=== PATIENT | male | born 1985 | race Caucasian/White ===

== ENCOUNTER → 2019-03-17 | Outpatient (CLI) | payer MEDICAID ==
[~2019-03-17] MED LIST: BENZ1TAB2 PO; DOCU100T15 PO; LAMO25TA2 PO; MULTTAB61 PO; ONDA4TAB5 PO; OXCA600T3 PO; PALI3TAB3 PO; QUET25TA37 PO; TRAZ100T2 PO
[2019-03-17 08:31] LABS: Eosinophils # (auto) 0.2 uL; Eosinophils % (auto) 3.5 % (0.0-7.0); Hemoglobin 9.5 g/dL (13.5-17.5); Lymphocytes # (auto) 1.3 uL; Neutrophils # (auto) 2.4 uL; Nucleated Red Blood Cells % 0.1 %
[2019-03-17 08:34] LABS: Basophils # (auto) 0.1 uL; Basophils % (auto) 1.2 % (0.0-2.0); Hematocrit 31.2 % (41.0-53.0); Lymphocytes % (auto) 28.6 % (10.0-50.0); Mean Corpuscular Hgb Conc. 30.4 g/dL (32.0-36.0); Monocytes # (auto) 0.5 uL; Neutrophils % (auto) 54.7 % (37.0-80.0); Platelet Count (auto) 388 10^3/uL (140-450); Red Blood Cells 4.73 10^6/uL (4.5-5.90); White Blood Cell 4.5 10^3/uL (4.4-10.8)
[2019-03-17 11:04] LABS: Red Cell Distribution Width 26.4 % (11.8-14.3)
[2019-03-17 12:10] LABS: Cholesterol 214 mg/dL (< 200); HDL Cholesterol 65 mg/dL (40-59); LDL Cholesterol 140 mg/dL (< 100); Triglycerides 88 mg/dL (< 150)
== END | disposition home or self-care (01) ==
LOC: LAB 08:08
PROVIDERS: ATTEND Internal Medicine
DX: K20.9 Esophagitis, unspecified (principal); R56.9 Unspecified convulsions; Q85.00 Neurofibromatosis, unspecified
CPT/HCPCS: 36415; 80061; 83036; 85025

== ENCOUNTER 2019-04-30 10:17 | Emergency (ER) | payer MEDICAID ==
[~2019-04-30] VITALS: Ht 175.3 cm; Wt 72.6 kg
[~2019-04-30 10:17] MED LIST changes: +ONDA-144 PO; -ONDA4TAB5 PO
[2019-04-30] MEDS ORDERED: LORazepam 2MG/ML-1ML VIAL ONE (11:00)
[2019-04-30] MEDS ORDERED: LORazepam 2MG/ML-1ML VIAL IV ONE ×2 (11:00→11:30)
[2019-04-30] MEDS ORDERED: SODIUM CHLORIDE 0.9% 1,000 ML IV ONE (11:20)
[2019-04-30 11:53] LABS: Basophils # (auto) 0 uL; Eosinophils # (auto) 0 uL; Eosinophils % (auto) 0.4 % (0.0-7.0); Hematocrit 28.2 % (41.0-53.0); White Blood Cell 6.7 10^3/uL (4.4-10.8)
[2019-04-30 11:55] LABS: Basophils % (auto) 0.5 % (0.0-2.0); Lymphocytes # (auto) 0.5 uL; Lymphocytes % (auto) 7.4 % (10.0-50.0); Mean Corpuscular Hemoglobin 20.9 pg (28.0-32.0); Mean Corpuscular Hgb Conc. 31.8 g/dL (32.0-36.0); Mean Corpuscular Volume 65.6 fL (80.0-100.0); Monocytes # (auto) 0.7 uL; Monocytes % (auto) 10.1 % (0.0-12.0); Neutrophils # (auto) 5.5 uL; Neutrophils % (auto) 81.6 % (37.0-80.0); Platelet Count (auto) 286 10^3/uL (140-450)
[2019-04-30 11:56] LABS: Red Cell Distribution Width 20.8 % (11.8-14.3)
[2019-04-30] MEDS ORDERED: ACETAMINOPHEN 500 MG TAB PO ONE (12:00)
[2019-04-30 12:10] LABS: Albumin 3.5 g/dL (3.4-5.0); Calcium 7.9 mg/dL (8.5-10.1); Magnesium 2.2 mg/dL (1.6-2.6); Potassium 4.5 mmol/L (3.5-5.1)
[2019-04-30 12:13] LABS: BUN/Creatinine Ratio 8.6; Bilirubin, Total 0.2 mg/dL (0.2-1.0); Total Protein 7.1 g/dL (6.4-8.2)
[2019-04-30 13:11] LABS: Urine Bacteria NONE SEEN /hpf (None Seen); Urine Blood Negative /uL (Negative); Urine Specific Gravity 1.008 (1.001-1.035); Urine Sperm PRESENT /hpf (None Seen); Urine WBC 9 /hpf (0 - 3)
[2019-04-30] MEDS ORDERED: IOHEXOL 300 MG/ML 100ML BOTTLE IJ ONE (13:59)
[2019-04-30 14:00] VITALS: BP 125/73
== END 2019-04-30 15:53 | disposition home or self-care (01) ==
LOC: EDBD 10:17 → ER 10:20
DX: G40.909 Epilepsy, unspecified, not intractable, without status epilepticus (principal); J18.9 Pneumonia, unspecified organism; F20.9 Schizophrenia, unspecified
CPT/HCPCS: 36415; 70450; 71045; 71260; 80053; 81001; 83735; 85025; 93005; 94761; 96374; 99284; J2060; J7030; Q9967

== ENCOUNTER 2021-11-19 13:31 | Emergency (ER) | payer MEDICAID ==
[~2021-11-19] VITALS: Ht 175.3 cm; Wt 77.1 kg
[~2021-11-19 13:31] MED LIST changes: +MULT-1018 PO; -MULTTAB61 PO; +PALI3TAB PO; -PALI3TAB3 PO; -TRAZ100T2 PO; +TRAZ100T3 PO
[2021-11-19] MEDS ORDERED: LORazepam 2MG/ML-1ML VIAL IV ONE (13:45)
[2021-11-19 15:13] LABS: Potassium 4.2 mmol/L (3.5-5.1)
[2021-11-19 15:19] LABS: Albumin 4.2 g/dL (3.4-5.0); BUN/Creatinine Ratio 18.6; Basophils # (auto) 0.1 10 ^3/uL (0-0.2); Basophils % (auto) 0.9 % (0.0-2.0); Bilirubin, Total 0.4 mg/dL (0.2-1.0); Calcium 9.2 mg/dL (8.5-10.1); Eosinophils # (auto) 0 10 ^3/uL (0-0.8); Eosinophils % (auto) 0.3 % (0.0-7.0); Hematocrit 44.6 % (41.0-53.0); Hemoglobin 15.1 g/dL (13.5-17.5); Lymphocytes # (auto) 0.8 10 ^3/uL (0.4-5.4); Lymphocytes % (auto) 8.7 % (10.0-50.0); Mean Corpuscular Hemoglobin 28.7 pg (28.0-32.0); Mean Corpuscular Hgb Conc. 33.9 g/dL (32.0-36.0); Mean Corpuscular Volume 84.7 fL (80.0-100.0); Monocytes # (auto) 0.6 10 ^3/uL (0-1.3); Monocytes % (auto) 6.6 % (0.0-12.0); Neutrophils # (auto) 7.5 10 ^3/uL (1.6-8.6); Neutrophils % (auto) 83.5 % (37.0-80.0); Red Blood Cells 5.27 10^6/uL (4.5-5.90); Red Cell Distribution Width 14.9 % (11.8-14.3); Total Protein 8.1 g/dL (6.4-8.2)
[2021-11-19] MEDS ORDERED: ACETAMINOPHEN 325 MG TAB PO ONE (15:30)
[2021-11-19] MEDS ORDERED: ceFAZolin 1GM/50ML 50 ML IV ONE (16:00)
[2021-11-19] MEDS ORDERED: PHENYTOIN IV DILANTIN 1,000 MG in SODIUM CHL 0.9% 250 ML IV ONE (16:00)
[2021-11-19 17:50] VITALS: BP 141/90
== END 2021-11-19 18:12 | disposition short-term general hospital (02) ==
LOC: EDBD 13:31 → ER 13:37
DX: S02.85XA Fracture of orbit, unspecified, initial encounter for closed fracture (principal); S02.19XA Other fracture of base of skull, initial encounter for closed fracture; R56.9 Unspecified convulsions; G93.89 Other specified disorders of brain; Z90.49 Acquired absence of other specified parts of digestive tract; X58.XXXA Exposure to other specified factors, initial encounter; Y93.89 Activity, other specified; Y92.89 Other specified places as the place of occurrence of the external cause; Y99.8 Other external cause status
CPT/HCPCS: 36415; 70450; 70486; 80053; 85025; 96365; 96368; 99285; J0690; J1165; J7050

== ENCOUNTER 2024-07-22 17:59 | Emergency (ER) | payer MEDICAID ==
[~2024-07-22] VITALS: Ht 177.8 cm; Wt 81.8 kg
[~2024-07-22 17:59] MED LIST changes: -BENZ1TAB2 PO; +BENZ1TAB6 PO; +TRAZ-228 PO; -TRAZ100T3 PO
[2024-07-22 18:17] VITALS: PULSE 111; RESP 27; TEMP 98.3; O2SAT 92
[2024-07-22] MEDS: levETIRAcetam 1000 mg/100ml 100 ML IV ONE (18:28)
[2024-07-22 18:41] LABS: Basophils # (auto) 0 10 ^3/uL (0-0.2); Basophils % (auto) 0.2 % (0.0-2.0); Eosinophils # (auto) 0 10 ^3/uL (0-0.8); Eosinophils % (auto) 0.4 % (0.0-7.0); Hematocrit 39.9 % (41.0-53.0); Hemoglobin 13.6 g/dL (13.5-17.5); Lymphocytes % (auto) 9.7 % (10.0-50.0); Mean Corpuscular Hemoglobin 31.8 pg (28.0-32.0); Mean Corpuscular Volume 93.4 fL (80.0-100.0); Monocytes # (auto) 0.4 10 ^3/uL (0-1.3); Monocytes % (auto) 4.2 % (0.0-12.0); Neutrophils # (auto) 8.9 10 ^3/uL (1.6-8.6); Neutrophils % (auto) 85.5 % (37.0-80.0); Platelet Count (auto) 246 10^3/uL (140-450); Red Blood Cells 4.28 10^6/uL (4.5-5.90); Red Cell Distribution Width 13.8 % (11.8-14.3); White Blood Cell 10.4 10^3/uL (4.4-10.8)
[2024-07-22 18:49] LABS: Chloride 102 mmol/L (98-107); Potassium 3.8 mmol/L (3.5-5.1); Sodium 135 mmol/L (136-145)
[2024-07-22 18:50] LABS: Anion Gap 14 (5-15); Carbon Dioxide 19 mmol/L (20-31)
[2024-07-22 18:51] LABS: Calcium 9.1 mg/dL (8.7-10.4)
[2024-07-22 18:55] LABS: BUN/Creatinine Ratio 9.6 (10.0-20.0); Blood Urea Nitrogen 10 mg/dL (9-23); Glucose 125 mg/dL (74-106)
[2024-07-22 19:27] LABS: Lactic Acid w/Reflex 8.9 mmol/L (0.4-2.0)
[2024-07-22] MEDS: SODIUM CHLORIDE 0.9% 1,000 ML IV ONE (19:32)
[2024-07-22] MEDS: ACETAMINOPHEN 325 MG TAB PO ONE (19:50)
[2024-07-22 21:59] LABS: Urine Bacteria MOD /hpf (None Seen); Urine Blood Negative /uL (Negative); Urine Clarity Clear (Clear); Urine Color Light-Yellow (Yellow); Urine Hyaline Cast FEW /lpf (0 - 2); Urine Protein, UAD TRACE (Negative); Urine Specific Gravity 1.012 (1.001-1.035); Urine Sperm PRESENT /hpf (None Seen); Urine Urobilinogen Normal (Negative); Urine WBC 25 /hpf (0 - 3)
[2024-07-22 22:00] VITALS: BP 103/62; PULSE 86; RESP 18; O2SAT 92
== END 2024-07-22 22:33 | disposition home or self-care (01) ==
LOC: ER 17:59 → EDBD 17:59 → ER 22:33
DX: G40.909 Epilepsy, unspecified, not intractable, without status epilepticus (principal); F20.9 Schizophrenia, unspecified; R41.82 Altered mental status, unspecified; Z90.49 Acquired absence of other specified parts of digestive tract
CPT/HCPCS: 36415; 70450; 71045; 80048; 81001; 83605; 84484; 85025; 93005; 96361; 96365; 99291; J1953; J7030

== ENCOUNTER 2024-11-29 12:45 | Inpatient (IN) | payer MEDICAID ==
[~2024-11-29] VITALS: Ht 208.3 cm; Wt 54.2 kg
--- NOTE | 2024-11-29 12:59 | ED.PDOC ---
HPI (NEURO) HPI Comments 39 year old male STEPHANIE presents to the ED with chief complaint of seizure. EMS reports that the patient had been witnessed by family to be having a seizure that lasted around 5 minutes, however, patient has continued to be altered since the seizure. EMS relays patient's family stated that he has ran out of one of his seizure medication called Xcopri, waiting for the prescription to be filled. Patient unable to answer any questions at this time, however, EMS denies any incontinence, head injury, or mouth trauma. Chief Complaint: Seizure Time Seen by MD: 12:55 Primary Care Provider: UNKNOWN NAME Reviewed Notes: Nurses Notes, Medications, Allergies Information Source: Patient Mode of Arrival: Ambulatory Severity: Moderate Timing: Hours Duration: Since onset Prehospital treatment: None Seizure Quality: Tonic-clonic, Shaking, Single Episodes Seizure Location: Generalized Onset: At rest Circumstances: Spontaneous Symptoms: Syncope Before: Normal During: LOC After: Confusion History of: Seizure Disorder Past Medical History PAST MEDICAL HISTORY: Schizophrenia, Seizures Surgical History: Appendectomy Surgical History (Other): VNS stimulator Family History Family History: Reviewed,noncontributory to illness Social History Smoker: Non-Smoker Alcohol: Denies ETOH Use Drugs: Denies Drug Use Lives In: Home Constitutional: denies: chills, diaphoresis, fatigue, fever, malaise, sweats, weakness, others EENTM: denies: blurred vision, double vision, ear bleeding, ear discharge, ear drainage, ear pain, ear ringing, eye pain, eye redness, hearing loss, mouth pain , mouth swelling, nasal discharge, nose bleeding, nose congestion, nose pain, photophobia, tearing, throat pain, throat swelling, voice changes, others Respiratory: denies: cough, hemoptysis, orthopnea, SOB at rest, shortness of breath, SOB with excertion, stridor, wheezing, others Cardiovascular: denies: chest pain, dizzy spells, diaphoresis, Dyspnea on exertion, edema, irregular heart beat, left arm pain, lightheadedness, palpitations, PND, syncope, others Gastrointestinal: denies: abdomen distended, abdominal pain, blood streaked bowels, constipated, diarrhea, dysphagia, difficulty swallowing, hematemesis, melena, nausea, poor appetite, poor fluid intake, rectal bleeding, rectal pain, vomiting, others Genitourinary: denies: burning, dysuria, flank pain, frequency, hematuria, incontinence, penile discharge, penile sore, pain, testicle pain, testicle swelling, urgency, others Neurological: reports: seizure; denies: dizziness, fainting, headache, left sided numbness, left sided weakness, numbness, paresthesia, pre-existing deficit, right sided numbness, right sided weakness, speech problems, tingling, tremors, weakness, others Musculoskeletal: denies: back pain, gout, joint pain, joint swelling, muscle pain, muscle stiffness, neck pain, others Integumetry: denies: bruises, change in color, change in hair/nails, dryness, laceration, lesions, lumps, rash, wounds, others Allergic/Immunocompromised: denies: Difficulty Healing, Frequent Infections, Hives, Itching, others Hematologic/Lymphatic: denies: anemia, blood clots, easy bleeding, easy bruising, swollen glands, others Endocrine: denies: excessive hunger, excessive sweating, excessive thirst, excessive urination, flushing, intolerance to cold, intolerance to heat, unexplained weight gain, unexplained weight loss, others Psychiatric: denies: anxiety, bipolar disorder, depression, hopeless, panic disorder, schizophrenia, sleepless, suicidal, others Unable to Obtain due to: Altered Mental Status All Other Systems: Reviewed and Negative Physical Exam General Appearance: Moderate Distress, Normal HEENT: Normal ENT Inspection, PERRL/EOMI Neck: Full Range of Motion, Non-Tender, Normal, Normal Inspection Respiratory: Chest Non-Tender, Lungs Clear, No Accessory Muscle Use, No Respiratory Distress, Normal Breath Sounds Cardiovascular: No Edema, No JVD, No Murmur, No Gallop, Normal Peripheral Pulses, Regular Rate/Rhythm Breast Exam: Deferred Gastrointestinal: No Organomegaly, Non Tender, No Pulsatile Mass, Normal Bowel Sounds, Soft Genitalia: Deferred Pelvic: Deferred Rectal: Deferred Extremities: No calf tenderness, Normal capillary refill, Normal range of motion, Non-tender, No pedal edema Musculoskeletal : Apperance: Normal Neurologic: Disoriented, Motor Weakness (Moving all extremities without purpose) Cerebellar Function: NOT DONE Reflexes: NOT DONE Skin: Dry, Normal Color, Warm Peripheral Pulses: 3+ Radial (R), 3+ Radial (L) Lymphatic: No Adenopathy Was a procedure done? Was a procedure done?: No Differential Diagnosis (SZ) Seizure: Psychogenic Seizure, Closed Head Injury, CVA/TIA X-Ray, Labs, Meds, VS Vital Signs Date Time Temp Pulse Resp B/P (MAP) Pulse Ox O2 Delivery O2 Flow Rate FiO2 11/29/24 12:51 99 Patient disoriented. History of seizure. Unknown whether he is taking his medication. Vitals stable. Moving all extremities. Can not get history. He is altered. No history of fall. Establish intravenous access. Was given fluids. Was given Ativan. Continue monitoring. Time of 1ST Reevaluation: 13:55 Reevaluation 1ST: Unchanged Patient Education/Counseling: Diagnosis, Treatment Family Education/Counseling: No Family Present Departure 1 Departure Time of Disposition: 13:12 Impression: Primary Impression: Metabolic encephalopathy Disposition: ADMITTED INPATIENT Admit to: Med Surg Condition: Guarded Critical Care Note Critical Care Time?: No Stability Stability form required: No Heart Score Heart Score: Heart Score Response (Comments) Value History Slightly Suspicious 0 EKG Normal 0 Age <45 0 Risk Factors No known risk factors 0 Troponin N/A 0 Total 0 I personally scribed for RAYMOND OLVERA MD ([email or web address]) on 11/29/24 at 12:58. Electronically submitted by Cesar Schafer ([email or web address]). RAYMOND OLVERA MD Nov 29, 2024 12:58
--- NOTE | 2024-11-29 13:23 | DVH ---
CHEST RADIOGRAPH Indication: sob Technique: Single frontal view of the chest was obtained COMPARISON: XY CHEST PORTABLE on DOS: 07/22/24 FINDINGS: Lines and Tubes: Left chest vagal nerve stimulator device. Lungs: Clear Pleura: No effusion. No pneumothorax. Cardiomediastinal contours: Unremarkable Bones: Unremarkable IMPRESSION: No acute disease.
[2024-11-29 13:25] LABS: Basophils # (auto) 0 10 ^3/uL (0-0.2); Basophils % (auto) 0.6 % (0.0-2.0); Eosinophils # (auto) 0.1 10 ^3/uL (0-0.8); Eosinophils % (auto) 1.7 % (0.0-7.0); Hematocrit 44.3 % (41.0-53.0); Hemoglobin 14.7 g/dL (13.5-17.5); Lymphocytes # (auto) 1.5 10 ^3/uL (0.4-5.4); Lymphocytes % (auto) 30.3 % (10.0-50.0); Mean Corpuscular Hemoglobin 30.1 pg (28.0-32.0); Mean Corpuscular Hgb Conc. 33.1 g/dL (32.0-36.0); Monocytes # (auto) 0.5 10 ^3/uL (0-1.3); Monocytes % (auto) 10.4 % (0.0-12.0); Neutrophils # (auto) 2.9 10 ^3/uL (1.6-8.6); Nucleated Red Blood Cells % 0.2 %; Platelet Count (auto) 259 10^3/uL (140-450); Red Blood Cells 4.88 10^6/uL (4.5-5.90); Red Cell Distribution Width 14.6 % (11.8-14.3)
[2024-11-29 13:31] LABS: Anion Gap 9 (5-15); Carbon Dioxide 27 mmol/L (20-31); Chloride 103 mmol/L (98-107); Potassium 3.8 mmol/L (3.5-5.1); Sodium 139 mmol/L (136-145)
[2024-11-29 13:32] LABS: Calcium 9.6 mg/dL (8.7-10.4)
[2024-11-29 13:37] LABS: BUN/Creatinine Ratio 23.4 (10.0-20.0); Blood Urea Nitrogen 25 mg/dL (9-23); Glucose 96 mg/dL (74-106)
[2024-11-29] MEDS: SODIUM CHLORIDE 0.9% 1,000 ML IV ONE (13:46)
[2024-11-29 14:00] VITALS: PULSE 72; RESP 16; O2SAT 100
--- NOTE | 2024-11-29 14:27 | ECG ---
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
[2024-11-29] MEDS: LORazepam 2MG/ML-1ML VIAL IV ONE (16:40)
[2024-11-29 19:59] VITALS: PULSE 86; RESP 14; O2SAT 98
[2024-11-30] MEDS ORDERED: LORazepam 2MG/ML-1ML VIAL IV PRN (01:15)
--- NOTE | 2024-11-30 01:19 | DVHHP2 ---
History of Present Illness Reason for Visit: Seizure activity History of Present Illness 39-year-old male presents for evaluation of seizure activity. Patient had one witnessed seizure lasting approximately 3 minutes was postictal until arrival to the emergency department. Currently patient is alert and oriented. Patient rep orts running out of his medication called Xcopri.. No oral trauma or head trauma. Past Medical History Seizures schizophrenia Past Surgical History VNS stimulator Family History Noncontributory Smoke: No ALCOHOL: none Drugs: None Lives: with Family Review of Systems Review of Systems Review of systems are currently negative otherwise addressed HPI. Allergies: Coded Allergies: NO KNOWN ALLERGIES (Unverified , 02/28/19) Exam Vital Signs Vital Signs Date Time Temp Pulse Resp B/P (MAP) Pulse Ox O2 Delivery O2 Flow Rate FiO2 11/29/24 20:00 85 11/29/24 19:59 14 98 Nasal Cannula* 2 11/29/24 19:58 98.4 130/75 (93) 98.4 Exam Gen: 39-year-old male in no apparent distress. Skin: Warm, dry, normal color and texture, no rash. HEENT: Normocephalic atraumatic, mucous membranes moist and pink. Neck: Cervical and supraclavicular nodes normal without enlargement, trachea is midline, thyroid gland is normal without masses. Pulmonary: Clear to auscultation and percussion bilaterally. Cardiac: Regular rate and rhythm. No murmur Abdomen: Soft, nontender, nondistended, bowel sounds present all 4 quadrants, no guarding, no rigidity, no organomegaly. Extremities: No cyanosis, clubbing, no edema Neuro: Cranial nerves II through XII grossly intact, normal affect and speech, no focal motor deficits. Labs/Xrays ORDERING PHYSICIAN: RAYMOND OLVERA MD PROCEDURE(s): CXRP - CHEST PORTABLE REASON: sob ORDER NUMBER(s): [id number], ACCESSION NUMBER(s): [id number] CHEST RADIOGRAPH Indication: sob Technique: Single frontal view of the chest was obtained COMPARISON: XY CHEST PORTABLE on DOS: 07/22/24 FINDINGS: Lines and Tubes: Left chest vagal nerve stimulator device. Lungs: Clear Pleura: No effusion. No pneumothorax. Cardiomediastinal contours: Unremarkable Bones: Unremarkable IMPRESSION: No acute disease. Labs Test 11/29/24 13:02 Range/Units White Blood Count 5.0 4.4-10.8 10^3/uL Red Blood Count 4.88 4.5-5.90 10^6/uL Hemoglobin 14.7 13.5-17.5 g/dL Hematocrit 44.3 41.0-53.0 % Mean Corpuscular Volume 91.0 80.0-100.0 fL Mean Corpuscular Hemoglobin 30.1 28.0-32.0 pg Mean Corpuscular Hemoglobin Concent 33.1 32.0-36.0 g/dL Red Cell Distribution Width 14.6 H 11.8-14.3 % Platelet Count 259 140-450 10^3/uL Mean Platelet Volume 7.1 6.9-10.8 fL Neutrophils (%) (Auto) 57.0 37.0-80.0 % Lymphocytes (%) (Auto) 30.3 10.0-50.0 % Monocytes (%) (Auto) 10.4 0.0-12.0 % Eosinophils (%) (Auto) 1.7 0.0-7.0 % Basophils (%) (Auto) 0.6 0.0-2.0 % Neutrophils # (Auto) 2.9 1.6-8.6 10 ^3/uL Lymphocytes # (Auto) 1.5 0.4-5.4 10 ^3/uL Monocytes # (Auto) 0.5 0-1.3 10 ^3/uL Eosinophils # (Auto) 0.1 0-0.8 10 ^3/uL Basophils # (Auto) 0 0-0.2 10 ^3/uL Nucleated Red Blood Cells 0.2 % Sodium Level 139 136-145 mmol/L Potassium Level 3.8 3.5-5.1 mmol/L Chloride Level 103 98-107 mmol/L Carbon Dioxide Level 27 20-31 mmol/L Anion Gap 9 5-15 Blood Urea Nitrogen 25 H 9-23 mg/dL Creatinine 1.07 0.700-1.30 mg/dL Glomerular Filtration Rate Calc 89 >90 mL/min BUN/Creatinine Ratio 23.4 H 10.0-20.0 Serum Glucose 96 74-106 mg/dL Calcium Level 9.6 8.7-10.4 mg/dL Assessment/Plan Assessment/Plan Assessment Breakthrough seizure Schizophrenia Plan Admit the patient to Med surge to the hospitalist Resume home medications Seizure precautions in place Continue treatment per orders. Plan discussed with: Patient My Orders Orders - JACKSON GODINEZ Procedure Category Date Status Time (Nf) Xcopri PHA 11/30/24 Transmitted 10:00 Lamotrigine Tablet PHA 11/30/24 Transmitted (Lamictal Tablet) 10:00 Seizure Precautions GINGER 11/30/[address] 01:10 Lorazepam 2mg/Ml Inj PHA 11/30/24 Transmitted (Ativan Inj) 01:15 Oxcarbazepine Tablet PHA 11/30/24 Transmitted (Trileptal Tablet) 10:00 Admit ADMIT 11/30/24 Transmitted 01:10 Temazepam (Restoril) PHA 11/30/24 Transmitted 01:15 Ondansetron Hcl PHA 11/30/24 Transmitted (Zofran) 01:15 Condition: Stable GINGER 11/30/24 Transmitted 01:10 Acetaminophen Tablet PHA 11/30/24 Transmitted (Tylenol Tablet) 01:15 Bedrest With Bathroom GINGER 11/30/24 Transmitted Privileg 01:10 Regular Diet DIET 11/30/24 Transmitted Breakfast Date of Service: Nov 30, 2024 Billing Provider: JACKSON GODINEZ Common Visit Codes: [id number] INP/OBS CARE (MOD) JACKSON GODINEZ Nov 30, 2024 01:19
[2024-11-30 08:20] VITALS: PULSE 74; RESP 16; O2SAT 96
[2024-11-30 09:34] VITALS: BP 121/80; PULSE 82; RESP 16; TEMP 98; O2SAT 100
[2024-11-30] MEDS: OXcarbazepine 300 MG TAB PO SCH (10:00)
[2024-11-30] MEDS: XCOPRI 200 MG PO SCH (10:36)
[2024-11-30] MEDS: lamoTRIgine 25 MG TAB PO SCH (10:48)
[2024-11-30 13:00] VITALS: BP 127/76; PULSE 69; RESP 17; TEMP 97.2; O2SAT 94
[2024-11-30] MEDS ORDERED: LAMO300T2 (13:45)
[2024-11-30] MEDS ORDERED: QUET400T13 (13:45)
[2024-11-30] MEDS ORDERED: LACO50TA5 (13:45)
--- NOTE | 2024-11-30 13:52 | DVHPN2 ---
Subjective Patient denies any symptoms. Reviewed: Care Plan, H&P, Labs, Medications Changes from previous H/P or p: No Changes General: Per HPI Objective Vitals Vital Signs Date Time Temp Pulse Resp B/P (MAP) Pulse Ox O2 Delivery O2 Flow Rate FiO2 11/30/24 09:34 98.0 82 16 121/80 (94) 100 98.0 11/30/24 09:34 Room Air* 0 21 Intake/Output Intake and Output 11/30/24 07:00 Intake Total 1000 ml Balance 1000 ml Intake IV Total 1000 ml General Appearance: Alert, Oriented X3, Cooperative, No acute distress HEENT: Atraumatic, PERRLA Lungs: Clear to auscultation, Normal air movement Cardiovascular: Normal S1, Normal S2 Abdomen: Normal bowel sounds Musculoskeletal: Normal sensory function, Normal motor function Neuro: Normal gait, Normal speech Skin: Dry, Intact Psych/Mental Status: Mental status NL, Mood NL Medications Current Medications Medications Dose Ordered Sig/Miki Route Start Time Stop Time Status Last Admin Dose Admin Patient Own Medication 200 mg BID PO 11/30/24 10:00 Lamotrigine 50 mg Q12HR PO 11/30/24 10:00 11/30/24 10:48 50 MG Lorazepam 1 mg Q5MINP PRN IV 11/30/24 01:15 Oxcarbazepine 600 mg Q12HR PO 11/30/24 10:00 Temazepam 15 mg QHSP PRN PO 11/30/24 01:15 Ondansetron HCl 4 mg Q4HP PRN IV 11/30/24 01:15 Acetaminophen 650 mg Q6HP PRN PO 11/30/24 01:15 Laboratory Results Laboratory Tests 11/29/24 13:02 Labs and/or images reviewed: Labs reviewed by me, Image(s) reviewed by me Assessment/Plan Assessment/Plan Impression: -Breakthrough seizures -history of seizure disorder -schizophrenia -history of pacemaker implant -medication noncompliance Plan: -patient interviewed by myself, with the patient stating that he has been out of his medications for the past three months. He states that he prefers to have a new neurologist. -12 lead ECG reviewed. Unremarkable -restart home medications for schizophrenia -continue previously prescribed antiepileptics -neurology consultation. Established follow up if possible as outpatient once discharge. -DC planning for tomorrow if patient remains seizure-free Total time spent with patient discussing and formulating plan of care: 35 minutes. This medical document was created using an electronic medical record system with [employer] dictation system. Although this document has been carefully reviewed, there may still be some phonetic and typographical errors. These areas are purely typographical due to imperfections of the software programs, and do not reflect any compromise in the patient's medical care. Plan discussed with: Patient, Other (RN) My Orders Orders - ELMA COX NP Procedure Category Date Status Time * Neurology Consult CONS 11/30/24 Transmitted 13:43 Lacosamide (Vimpat) PHA 12/01/24 Transmitted 10:00 Quetiapine Fumarate PHA 11/30/24 Transmitted Tablet (Seroquel Tab 22:00 Quetiapine Fumarate PHA 11/30/24 Transmitted Tablet (Seroquel Tab 22:00 Date of Service: Nov 30, 2024 Billing Provider: ELMA COX NP Common Visit Codes: [id number] INP/OBS CARE(HIGH) ELMA COX NP Nov 30, 2024 13:52
[2024-11-30 17:29] VITALS: BP 123/69; PULSE 69; RESP 19; TEMP 97.6; O2SAT 97
[2024-11-30 21:00] VITALS: BP 122/84; PULSE 57; RESP 18; TEMP 97.5; O2SAT 96
[2024-11-30] MEDS: QUEtiapine FUMARATE 100 MG TAB PO SCH (21:15)
[2024-11-30] MEDS: TEMAZEPAM 15 MG CAP PO PRN (21:16)
[2024-11-30] MEDS: ACETAMINOPHEN 325 MG TAB PO PRN (21:17)
[2024-11-30] MEDS ORDERED: QUEtiapine FUMARATE 25 MG TAB PO SCH (22:00)
[2024-11-30] MEDS: ONDANSETRON HCL 4 MG/2 ML VIAL IV PRN (23:39)
[2024-12-01] VITALS (8 sets, daily range): BP systolic 135–149; BP diastolic 89–96; PULSE 57–79; RESP 15–20; TEMP 97.3–98; O2SAT 10–99
--- NOTE | 2024-12-01 09:52 | DVHDS2 ---
Discharge Summary Date of Admission Nov 30, 2024 at 01:10 Date of Discharge: Dec 01, 2024 Admitting Diagnosis Breakthrough seizures Labs/Diagnostic Data: Laboratory Results Test 11/29/24 13:02 White Blood Count 5.0 10^3/uL (4.4-10.8) Red Blood Count 4.88 10^6/uL (4.5-5.90) Hemoglobin 14.7 g/dL (13.5-17.5) Hematocrit 44.3 % (41.0-53.0) Mean Corpuscular Volume 91.0 fL (80.0-100.0) Mean Corpuscular Hemoglobin 30.1 pg (28.0-32.0) Mean Corpuscular Hemoglobin Concent 33.1 g/dL (32.0-36.0) Red Cell Distribution Width 14.6 % (11.8-14.3) Platelet Count 259 10^3/uL (140-450) Mean Platelet Volume 7.1 fL (6.9-10.8) Neutrophils (%) (Auto) 57.0 % (37.0-80.0) Lymphocytes (%) (Auto) 30.3 % (10.0-50.0) Monocytes (%) (Auto) 10.4 % (0.0-12.0) Eosinophils (%) (Auto) 1.7 % (0.0-7.0) Basophils (%) (Auto) 0.6 % (0.0-2.0) Neutrophils # (Auto) 2.9 10 ^3/uL (1.6-8.6) Lymphocytes # (Auto) 1.5 10 ^3/uL (0.4-5.4) Monocytes # (Auto) 0.5 10 ^3/uL (0-1.3) Eosinophils # (Auto) 0.1 10 ^3/uL (0-0.8) Basophils # (Auto) 0 10 ^3/uL (0-0.2) Nucleated Red Blood Cells 0.2 % Sodium Level 139 mmol/L (136-145) Potassium Level 3.8 mmol/L (3.5-5.1) Chloride Level 103 mmol/L (98-107) Carbon Dioxide Level 27 mmol/L (20-31) Anion Gap 9 (5-15) Blood Urea Nitrogen 25 mg/dL (9-23) Creatinine 1.07 mg/dL (0.700-1.30) Glomerular Filtration Rate Calc 89 mL/min (>90) BUN/Creatinine Ratio 23.4 (10.0-20.0) Serum Glucose 96 mg/dL (74-106) Calcium Level 9.6 mg/dL (8.7-10.4) Other Laboratory Tests 11/29/24 13:02 Brief Hx & Hospital Course: History of Present Illness 39-year-old male presents for evaluation of seizure activity. Patient had one witnessed seizure lasting approximately 3 minutes was postictal until arrival to the emergency department. Currently patient is alert and oriented. Patient reports running out of his medication called Xcopri.. No oral trauma or head trauma. Course of hospitalization: Patient has been seizure-free while in the hospital. Patient was home medications have been restarted. Xcopri is not part of hospital formulary, but patient's other antiepileptics have been restarted. Neurology consultation has been placed. EKG has been reviewed, with pacemaker working appropriately. Patient will be discharged home today once patient has been cleared by Neurology. Patient is requesting a new neurologist, with plans for follow up visit with contracted neurologist. Patient was agreeable with discharge plan. All questions answered. Physical examination General: Alert and Oriented x3. No acute distress. Well-nourished. Eyes: EOMI. Anicteric. HENT: Moist mucous membranes. Lungs: Clear to auscultation bilaterally. No accessory muscle use. Cardiovascular: Regular rate and rhythm. No murmur. No JVD. Abdomen: Soft, non-tender and non-distended. No palpable masses. Extremities: No edema. Non-tender. Skin: No rashes or lesions. Warm. Neurologic: No focal neurological deficits. CN II-XII grossly intact, but not individually tested. Psychiatric: Cooperative. Appropriate mood and affect. Total time spent with patient discussing and formulating plan of care: 35 minutes. This medical document was created using an electronic medical record system with [employer] dictation system. Although this document has been carefully reviewed, there may still be some phonetic and typographical errors. These areas are purely typographical due to imperfections of the software programs, and do not reflect any compromise in the patient's medical care. Consults/Reason for consult Neurology: Breakthrough seizure Condition at Discharge: Fair Final Diagnosis/Problems List Breakthrough seizures Discharge Disposition: Home Discharge Instruct/Medications Diet: Regular Activity: No Restrictions, As Tolerated Follow Up/Referral: PCP in 1-2 weeks Neurology in 1-2 weeks Medications: Refer to medication reconciliation form. Continue all home medications 36 Discharge Statement: "Patient was advised to return to the ER or call 911 if any headaches, dizziness, shortness of breath, chest pain, abdominal pain, bleeding, fevers, or worsening of medical condition. Patient was counseled about treatment plan, medications, possible side effects, patientverbalized understanding. All questions were answered to the best of my ability. This discharge took greater then 30 minutes in planning, reviewing documentation, counseling the patient, and discussing with other team members." ASSESSMENT ASSESSMENT Assessment Breakthrough seizures Date of Service: Dec 01, 2024 Billing Provider: ELMA COX NP Common Visit Codes: [id number] DISCH DAY >30min ELMA COX NP Dec 01, 2024 09:52
[2024-12-01] MEDS: lamoTRIgine 100 MG TAB PO SCH (10:00)
[2024-12-01] MEDS: LACOSAMIDE 50 MG TAB PO SCH ×2 (10:13→22:00)
--- NOTE | 2024-12-01 21:15 | DVHINCON2 ---
Date of service: Dec 01, 2024 Referring Physician Cole Reason for Consultation Breakthrough seizures, history of epilepsy History of Present Illness is a 39 years old right-handed gentleman with a history of schizophrenia, seizure disorder, he was admitted to the [facility] on 11/29/2024 with a chief company of seizure activity. At that time, he is alert and oriented, but he was not a good historian, he does not remember his seizure medications, I have interviewed him and his mother for the history On 11/29/2024, when he was walking at home, he did not feel good, and he could not talk, he was followed by big shaking in whole-body without loss of consciousness, which is consistent with his seizure, and mother dial 911. On 11/23/2024, around dinner time, he had one seizure with complete amnesia, and he claimed he was said to have shaking all over body without biting or incontinence He was seizure disorder since age of [age] to 1 years old, which he was spells of shaking all over body with loss of consciousness, sometimes with biting in the mouth, he still has seizure 2 to 3 times monthly, mostly when he is asleep, and he remembers some of the seizure attacks He had a VNS stimulator He saw a neurologist. He saw a [facility] specialist long time ago He was on Vimpat 50 mg b.i.d., Xcopri 200 mg two tablets at bedtime, lamotrigine 300 mg two tablets in the morning He was on Trileptal CBC, 11/29/2024: Unremarkable BMP, 11/29/2024: Unremarkable CT head, 07/22/2024: No acute intracranial abnormality. Past Medical History Schizophrenia, seizure Past Surgical History Appendectomy, VNS stimulator Family History: Asthma G8 BROTHER Diabetes mellitus G8 FATHER Malignant neoplasm of breast grandma Family History Diabetes, asthma, cancer Social History He has no history of smoking, alcohol or drug abuse Allergies: Coded Allergies: NO KNOWN ALLERGIES (Unverified , 02/28/19) Home Meds Reported Medications Lamotrigine (LAMOTRIGINE ER) 300 Mg Tab 11/30/24 Lacosamide (Lacosamide) 50 Mg Tab 11/30/24 Quetiapine Fumerate (QUETIAPINE FUMARATE) 400 Mg Tab 11/30/24 Oxcarbazepine (Trileptal) 600 Mg Tab, 600 MG PO BID, TAB 03/01/19 Trazodone Hcl (Trazodone Hcl) 100 Mg Tab, 100 MG PO HS, MG 03/01/19 Quetiapine Fumerate (Seroquel) 25 Mg Tab, 800 MG PO HS for 30 Days, MG 02/28/19 Lamotrigine (Lamictal) 25 Mg Tab, 50 MG PO TID, #60 TAB 1 Refill 02/28/19 Ondansetron (Zofran) 4 Mg Tab, 8 MG PO TIDPRN PRN for NAUSEA / VOMITING, MG 02/28/19 Multiple Vitamin (Multivitamins) Tab, 1 TAB PO DAILY, #90 TAB 3 Refills 02/28/19 Docusate Sodium (Docusate Sodium) 100 Mg Tab, 200 MG PO BIDP PRN for FOR CONSTIP ATION, MG 02/28/19 Benztropine Mesylate (Benztropine Mesylate) 1 Mg Tab, 1 TAB PO DAILY, #60 TAB 02/28/19 Paliperidone (Invega) 3 Mg Tab, 1 TAB PO DAILY, #30 TAB 2 Refills 02/28/19 Current Medications Current Medications Medications (Trade) Dose Ordered Sig/Miki Route PRN Reason Start Time Stop Time Status Last Admin Lacosamide (Vimpat) 50 mg DAILY PO 12/01/24 10:00 12/01/24 10:13 Quetiapine Fumarate (SEROquel TABLET) 800 mg HS PO 11/30/24 22:00 11/30/24 14:50 DC Quetiapine Fumarate (SEROquel TABLET) 400 mg HS PO 11/30/24 22:00 11/30/24 21:15 Review of Systems As above, the other systems are negative Vital Signs Vital Signs Date Time Temp Pulse Resp B/P (MAP) Pulse Ox O2 Delivery O2 Flow Rate FiO2 12/01/24 16:25 97.3 67 17 149/95 (113) 97 97.3 12/01/24 08:12 Room Air* 0 21 Physical Exam GENERAL EXAM: General: the patient is well developed and nourished. No acute distress. HEENT: Normocephalic, neck is supple, no carotid bruits. No mass. RESPIRATORY: Normal respiratory effort with symmetrical lung expansion. Lungs clear to auscultation. CARDIOVASCULAR: Regular rate and rhythm with no murmurs. S1, S2. ABDOMEN: Soft, nontender, normal bowel sound NEUROLOGICAL: MENTAL STATUS: Awake and alert. Oriented to person, place, time and general circumstances. Able to give personal history. SPEECH, LANGUAGE, HIGHER CORTICAL FUNCTION: no aphasia or dysathria. CRANIAL NERVES: #2: Intact visual acuña to confrontation. The optic discs were sharp. #3,4,6: Pupils are equal, round and reactive. EOMs full and conjugate. #5: Facial sensation intact in all three divisions bilaterally. Mandibular strength intact. #7: Facial muscles symmetrical and strength intact. #8: Hearing grossly normal to voice. #9,10: Uvula and soft palate rise in the midline. Swallow and voice are normal. #11: Trapezius and sternomastoid strength intact bilaterally. #12: Tongue midline. No fasciculations or atrophy. SENSATION: Sensation to touch and pinprick is normal. MOTOR: Normal tone in the upper and lower extremity. Normal muscle bulk. No fasciculations. Mild tremor in the hands. Muscle strength of the major groups in the upper extremities is 5/5. Muscle strength of the major groups in the lower extremities is 5/5. REFLEXES: Deep tendon reflexes normal and symmetrical. No pathological reflexes. CEREBELLAR/COORDINATION: Finger to nose is normal bilaterally. GAIT/STATION: deferred. Labs/Diagnostic Data Labs Test 11/29/24 13:02 Range/Units White Blood Count 5.0 4.4-10.8 10^3/uL Red Blood Count 4.88 4.5-5.90 10^6/uL Hemoglobin 14.7 13.5-17.5 g/dL Hematocrit 44.3 41.0-53.0 % Mean Corpuscular Volume 91.0 80.0-100.0 fL Mean Corpuscular Hemoglobin 30.1 28.0-32.0 pg Mean Corpuscular Hemoglobin Concent 33.1 32.0-36.0 g/dL Red Cell Distribution Width 14.6 H 11.8-14.3 % Platelet Count 259 140-450 10^3/uL Mean Platelet Volume 7.1 6.9-10.8 fL Neutrophils (%) (Auto) 57.0 37.0-80.0 % Lymphocytes (%) (Auto) 30.3 10.0-50.0 % Monocytes (%) (Auto) 10.4 0.0-12.0 % Eosinophils (%) (Auto) 1.7 0.0-7.0 % Basophils (%) (Auto) 0.6 0.0-2.0 % Neutrophils # (Auto) 2.9 1.6-8.6 10 ^3/uL Lymphocytes # (Auto) 1.5 0.4-5.4 10 ^3/uL Monocytes # (Auto) 0.5 0-1.3 10 ^3/uL Eosinophils # (Auto) 0.1 0-0.8 10 ^3/uL Basophils # (Auto) 0 0-0.2 10 ^3/uL Nucleated Red Blood Cells 0.2 % Sodium Level 139 136-145 mmol/L Potassium Level 3.8 3.5-5.1 mmol/L Chloride Level 103 98-107 mmol/L Carbon Dioxide Level 27 20-31 mmol/L Anion Gap 9 5-15 Blood Urea Nitrogen 25 H 9-23 mg/dL Creatinine 1.07 0.700-1.30 mg/dL Glomerular Filtration Rate Calc 89 >90 mL/min BUN/Creatinine Ratio 23.4 H 10.0-20.0 Serum Glucose 96 74-106 mg/dL Calcium Level 9.6 8.7-10.4 mg/dL Assessment Grand mal seizure, at least some of them are nonepileptic Plan/Recommendation Monitoring Supportive treatment Telemetry Vimpat 50 mg b.i.d. Xcopri 200 mg Bid Lamotrigine 300 mg Bid Ativan for seizure breakthrough I advised his mother to bring him back to [facility] Plan discussed with: Patient, Other RODOLFO AVERY MD Dec 01, 2024 21:15
[2024-12-01] MEDS: lamoTRIgine 25 MG TAB PO SCH (21:45)
[2024-12-01] MEDS: lamoTRIgine 100 MG TAB ONE (23:55)
[2024-12-02 01:00] VITALS: BP 125/86; PULSE 70; RESP 18; TEMP 97.4; O2SAT 96
[2024-12-02 05:00] VITALS: BP 123/93; PULSE 80; RESP 18; TEMP 97.4; O2SAT 98
[2024-12-02 08:00] VITALS: PULSE 74; RESP 16; O2SAT 99
[2024-12-02 09:00] VITALS: BP 125/73; PULSE 74; RESP 16; TEMP 97.9; O2SAT 99
== END 2024-12-02 12:30 | disposition home or self-care (01) | DRG 53 ==
LOC: EDBD 12:45 → ER 12:45 → OVERFLOW 11-30 01:10 → CENTRAL 11-30 01:15
PROVIDERS: ADMIT Nurse Practitioner Acute Care; ATTEND Nurse Practitioner Acute Care
DX: G40.409 Other generalized epilepsy and epileptic syndromes, not intractable, without status epilepticus (principal); F20.9 Schizophrenia, unspecified; Z79.899 Other long term (current) drug therapy; Z80.3 Family history of malignant neoplasm of breast; Z82.5 Family history of asthma and other chronic lower respiratory diseases; Z83.3 Family history of diabetes mellitus; Z91.148 Patient's other noncompliance with medication regimen for other reason; Z95.0 Presence of cardiac pacemaker; Z90.49 Acquired absence of other specified parts of digestive tract
CPT/HCPCS: 36415; 71045; 80048; 85025; 93005; 96361; 96374; G0378; J2405

== ENCOUNTER 2024-12-03 06:17 | Inpatient (IN) | payer MEDICAID ==
[~2024-12-03] VITALS: Ht 172.7 cm; Wt 53.9 kg
[~2024-12-03 06:17] MED LIST changes: +LACO50TA5; +LAMO300T2; +QUET400T13
[2024-12-03] MEDS: LORazepam 2MG/ML-1ML VIAL IV ONE (06:43)
[2024-12-03] MEDS: LORazepam 2MG/ML-1ML VIAL ONE (06:44)
--- NOTE | 2024-12-03 06:52 | ED.PDOC ---
HPI (NEURO) HPI Comments 39-year-old male brought in by EMS presents with a chief complaint of breakthrough seizures. Patient was just D/C from this hospital yesterday, admission was for breakthrough seizures as well. Per EMS, patient's mother called EMS after patient had 3 seizures since midnight, all three lasting approximately 1 minute each, all while patient was lying on couch. 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 Patient is currently postictal, A&O to person only. Patient denies any oral trauma, but dried blood noted on lips. Chief Complaint: Seizure Time Seen by MD: 06:28 Primary Care Provider: UNKNOWN NAME Reviewed Notes: Medications, Allergies Information Source: Emergency Med Personnel Mode of Arrival: EMS Severity: Moderate Headache Severity: Moderate Timing: Days Duration: Intermittent Prehospital treatment: None Seizure Quality: Mulitple Episodes Seizure Location: Generalized Onset: At rest Circumstances: Spontaneous History of: Seizure Disorder Associated Signs and Symptoms: Headache Past Medical History PAST MEDICAL HISTORY: Schizophrenia, Seizures Surgical History: Appendectomy Family History Family History: Reviewed,noncontributory to illness Social History Smoker: Non-Smoker Alcohol: Denies ETOH Use Drugs: Denies Drug Use Lives In: Home Constitutional: denies: chills, diaphoresis, fatigue, fever, malaise, sweats, weakness, others EENTM: denies: blurred vision, double vision, ear bleeding, ear discharge, ear drainage, ear pain, ear ringing, eye pain, eye redness, hearing loss, mouth pain, mouth swelling, nasal discharge, nose bleeding, nose congestion, nose pain, photophobia, tearing, throat pain, throat swelling, voice changes, others Respiratory: denies: cough, hemoptysis, orthopnea, SOB at rest, shortness of breath, SOB with excertion, stridor, wheezing, others Cardiovascular: denies: chest pain, dizzy spells, diaphoresis, Dyspnea on exertion, edema, irregular heart beat, left arm pain, lightheadedness, palpitations, PND, syncope, others Gastrointestinal: denies: abdomen distended, abdominal pain, blood streaked bowels, constipated, diarrhea, dysphagia, difficulty swallowing, hematemesis, melena, nausea, poor appetite, poor fluid intake, rectal bleeding, rectal pain, vomiting, others Genitourinary: denies: burning, dysuria, flank pain, frequency, hematuria, incontinence, penile discharge, penile sore, pain, testicle pain, testicle swelling, urgency, others Neurological: reports: seizure; denies: dizziness, fainting, headache, left sided numbness, left sided weakness, numbness, paresthesia, pre-existing deficit, right sided numbness, right sided weakness, speech problems, tingling, tremors, weakness, others Musculoskeletal: denies: back pain, gout, joint pain, joint swelling, muscle pain, muscle stiffness, neck pain, others Integumetry: denies: bruises, change in color, change in hair/nails, dryness, laceration, lesions, lumps, rash, wounds, others Allergic/Immunocompromised: denies: Difficulty Healing, Frequent Infections, Hives, Itching, others Hematologic/Lymphatic: denies: anemia, blood clots, easy bleeding, easy bruising, swollen glands, others Endocrine: denies: excessive hunger, excessive sweating, excessive thirst, excessive urination, flushing, intolerance to cold, intolerance to heat, unexplained weight gain, unexplained weight loss, others Psychiatric: denies: anxiety, bipolar disorder, depression, hopeless, panic disorder, schizophrenia, sleepless, suicidal, others All Other Systems: Reviewed and Negative Physical Exam General Appearance: Mild Distress, Thin HEENT: Normal ENT Inspection, Pharynx Normal, TMs Normal Neck: Full Range of Motion, Non-Tender, Normal, Normal Inspection Respiratory: Chest Non-Tender, Lungs Clear, No Accessory Muscle Use, No Respiratory Distress, Normal Breath Sounds Cardiovascular: No Edema, No JVD, No Murmur, No Gallop, Normal Peripheral Pulses, Regular Rate/Rhythm Breast Exam: Deferred Gastrointestinal: No Organomegaly, Non Tender, No Pulsatile Mass, Normal Bowel Sounds, Soft Genitalia: Deferred Pelvic: Deferred Rectal: Deferred Extremities: No calf tenderness, Normal capillary refill, Normal inspection, Normal range of motion, Non-tender, No pedal edema Neurologic: Disoriented, No Motor Deficits Cerebellar Function: Unable to Test Reflexes: NOT DONE Skin: Dry, Normal Color Lymphatic: NOT DONE Was a procedure done? Was a procedure done?: No Differential Diagnosis (SZ) Seizure: Psychogenic Seizure, Alcohol Withdrawl, Idiopathic, Epilepsy-Break Through, Epilepsy-Status X-Ray, Labs, Meds, VS Vital Signs Date Time Temp Pulse Resp B/P (MAP) Pulse Ox O2 Delivery O2 Flow Rate FiO2 12/03/24 06:20 98.0 100 20 141/89 (106) 95 Current Medications Medications (Trade) Dose Ordered Sig/Miki Route Start Time Stop Time Status Last Admin Lorazepam (Ativan Inj) 1 mg ONCE ONCE IV 12/03/24 06:45 12/03/24 06:46 DC 12/03/24 06:43 Levetiracetam 100 ml @ 400 mls/hr ONCE ONCE IV 12/03/24 07:00 12/03/24 07:14 DC 12/03/24 07:45 PATIENT: AYAKA STEVENSON SACCT: [id number]: [id number] : 1985 LOC: OVERFLOW ROOM / BED: [address] [place] [address] AGE / SEX: 39 / M ADM STATUS: ADM IN SERVICE [id number] ORDERING PHYSICIAN: DAKSHA REY MD PROCEDURE(s): HWOCT - HEAD WITHOUT CONTRAST REASON: ro bleed, multiple seizures ORDER NUMBER(s): [id number], ACCESSION NUMBER(s): [id number] CT HEAD WITHOUT CONTRAST INDICATION: ro bleed, multiple seizures EXAM DATE: 12/03/2024 07:56 AM COMPARISON: CT HEAD WITHOUT CONTRAST on DOS: 07/22/24, HEAD WITHOUT CONTRAST on DOS: 11/19/21 RADIATION DOSE: CTDIvol: 51 mGy, DLP: 915 mGy*cm PROCEDURE: CT scans of the head were obtained from the vertex to the skull base. Sagittal and coronal reconstructions were provided. All CT scans at this medical facility are performed using dose modulation techniques as appropriate to a performed exam including the following: Automated exposure control was utilized; adjustment of the MA and/or KV according to patient size; and use of iterative reconstruction technique. FINDINGS: There is sulcal and ventricular prominence. The brainshows normal morphology and cárdenas-white matter differentiation, without intracranial hemorrhage, extra-axial fluid collection, mass effect or acute large vessel infarct. The ventricles are normal in size. The basal cisterns are patent. The skull and visible facial bones are intact. The paranasal sinuses, mastoid air cells and middle ear cavities are well-aerated. The soft tissues of the scalp are unremarkable. IMPRESSION: No acute intracranial abnormality. ATED BY: KARL EDWARDS MD DICTATED DATE/TIME: 12/03/24816 SIGNED BY: KARL EDWARDS MD SIGNED DATE/TIME: 12/03/24816 39-year-old male with a known history of epilepsy presents here with seizures. Patient was seen in the ER yesterday for seizures sent home with medications. However family unable to get the medications filled. Patient had 3 seizures this morning prior to arrival. He did not have any seizures in route. However soon after I saw the patient patient had another tonic-clonic seizure. During this time I immediately went to patient's bedside, patient was given Ativan 1 mg IV with resolution of the symptoms. CT scan of the brain has been obtained with no evidence of acute pathology. Blood work including a CBC and BMP are done which are within normal limits. At this time I believe he would benefit from inpatient admission. I have given him Keppra 1000 mg IV in the ER. Hospitalist team has been contacted for admission. Time of 1ST Reevaluation: 06:58 Reevaluation 1ST: Unchanged Patient Education/Counseling: Diagnosis, Treatment, Prognosis Family Education/Counseling: Diagnosis, Treatment, Prognosis Departure 1 Departure Time of Disposition: 08:00 Impression: Primary Impression: Epileptic seizures Qualified Codes: G40.909 - Epilepsy, unspecified, not intractable, without status epilepticus Disposition: ADMITTED INPATIENT Admit to: [facility] Condition: Fair Critical Care Note Critical Care Time?: Yes (35 min-critical care time only) Critical care comment: Time spent evaluating the patient. Time spent immediately assessing the patient during his tonic-clonic activity, assessing for resolution. Concern for immediate deterioration of his neurologic system and respiratory system. Time spent ordering studies evaluating results of studies and speaking to hospitalist team for admission. Stability Stability form required: No Heart Score Heart Score: Heart Score Response (Comments) Value History N/A 0 EKG N/A 0 Age N/A 0 Risk Factors N/A 0 Troponin N/A 0 Total 0 I personally scribed for DAKSHA REY MD ([email or web address]) on 12/03/24 at 06:52. Electronically submitted by Russel Oliver ([email or web address]). I personally scribed for DAKSHA REY MD ([email or web address]) on 12/03/24 at 08:48. Electronically submitted by Russel Oliver ([email or web address]). DAKSHA REY MD Dec 03, 2024 06:52
[2024-12-03] MEDS ORDERED: ONDANSETRON HCL 4 MG/2 ML VIAL IV PRN (07:15)
[2024-12-03] MEDS ORDERED: ACETAMINOPHEN 500 MG TAB or CAP PO PRN (07:15)
[2024-12-03] MEDS ORDERED: NITROGLYCERIN 0.4 MG SL TAB SL PRN (07:15)
[2024-12-03] MEDS ORDERED: MORPHINE SULFATE INJ 2 MG/ml SYRG IV PRN ×2 (07:15)
--- NOTE | 2024-12-03 07:23 | DVHHP2 ---
History of Present Illness Reason for Visit: Recurrent seizure activity History of Present Illness Patient was a 39-year-old male transported to the emergency room by EMS after having multiple seizures at home. After arrival to the hospital, the patient had an additional seizure, and at the time of assessment the patient was noted to be in a postictal state. Patient was treated with Ativan 1 mg IV. The patient was recently discharged yesterday after being admitted in the hospital three days ago, with the patient being seizure free during the entire hospital stay. Patient was cleared by Neurology. Apparently, the patient did not obtain his new prescription for antiseizure medication. Other significant history of the patient includes schizophrenia. 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 Allergies: Coded Allergies: NO KNOWN ALLERGIES (Unverified , 02/28/19) Exam Vital Signs Vital Signs Date Time Temp Pulse Resp B/P (MAP) Pulse Ox O2 Delivery O2 Flow Rate FiO2 12/03/24 06:20 98.0 100 20 141/89 (106) 95 General Appearance: Alert, No acute distress, Other (Disoriented) HEENT: Atraumatic, PERRLA Respiratory: Clear to auscultation, Normal air movement Cardiovascular: Normal S1, Normal S2 Abdominal: Normal bowel sounds Extremities: No clubbing, No cyanosis, No edema, Normal pulses, No tenderness/swelling Neuro: Cranial nerves 3-12 NL Psych/Mental Status: Other (Altered mental status) Assessment/Plan Assessment/Plan Impression: -breakthrough seizures -epilepsy -schizophrenia Plan: -admit to telemetry unit -neurology consultation -restart antiepileptics -pain management -restart antipsychotic medication -repeat labs in a.m. -IV lorazepam p.r.n. seizure activity -seizure precautions Total time spent with patient discussing and formulating plan of care: 35 minutes. This medical document was created using an electronic medical record system with [employer] system. Although this document has been carefully reviewed, there may still be some phonetic and typographical errors. These areas are purely typographical due to imperfections of the software programs, and do not reflect any compromise in the patient's medical care. Plan discussed with: Patient, Other (RN) Date of Service: Dec 03, 2024 Billing Provider: ELMA COX NP Common Visit Codes: [id number] INP/OBS CARE (HIGH) ELMA COX NP Dec 03, 2024 07:23
[2024-12-03] MEDS ORDERED: LORazepam 2MG/ML-1ML VIAL IV PRN (07:30)
[2024-12-03] MEDS: levETIRAcetam 1000 mg/100ml 100 ML IV ONE (07:45)
[2024-12-03 08:03] LABS: Basophils # (auto) 0 10 ^3/uL (0-0.2); Basophils % (auto) 0.3 % (0.0-2.0); Eosinophils # (auto) 0 10 ^3/uL (0-0.8); Eosinophils % (auto) 0.2 % (0.0-7.0); Hematocrit 43.9 % (41.0-53.0); Hemoglobin 14.9 g/dL (13.5-17.5); Lymphocytes # (auto) 0.7 10 ^3/uL (0.4-5.4); Lymphocytes % (auto) 10.9 % (10.0-50.0); Mean Corpuscular Hemoglobin 30.6 pg (28.0-32.0); Mean Corpuscular Hgb Conc. 33.9 g/dL (32.0-36.0); Mean Corpuscular Volume 90.3 fL (80.0-100.0); Monocytes # (auto) 0.6 10 ^3/uL (0-1.3); Monocytes % (auto) 9.4 % (0.0-12.0); Neutrophils # (auto) 5.1 10 ^3/uL (1.6-8.6); Neutrophils % (auto) 79.2 % (37.0-80.0); Platelet Count (auto) 248 10^3/uL (140-450); Red Blood Cells 4.86 10^6/uL (4.5-5.90); Red Cell Distribution Width 14.1 % (11.8-14.3); White Blood Cell 6.4 10^3/uL (4.4-10.8)
[2024-12-03 08:20] LABS: Anion Gap 10 (5-15); Calcium 9.9 mg/dL (8.7-10.4); Carbon Dioxide 29 mmol/L (20-31); Chloride 99 mmol/L (98-107); Potassium 4.1 mmol/L (3.5-5.1); Sodium 138 mmol/L (136-145)
--- NOTE | 2024-12-03 08:20 | DVH ---
CT HEAD WITHOUT CONTRAST INDICATION: ro bleed, multiple seizures EXAM DATE: 12/03/2024 07:56 AM COMPARISON: CT HEAD WITHOUT CONTRAST on DOS: 07/22/24, HEAD WITHOUT CONTRAST on DOS: 11/19/21 RADIATION DOSE: CTDIvol: 51 mGy, DLP: 915 mGy*cm PROCEDURE: CT scans of the head were obtained from the vertex to the skull base. Sagittal and coronal reconstructions were provided. All CT scans at this medical facility are performed using dose modulation techniques as appropriate t o a performed exam including the following: Automated exposure control was utilized; adjustment of th e MA and/or KV according to patient size; and use of iterative reconstruction technique. FINDINGS: There is sulcal and ventricular prominence. The brainshows normal morphology and cárdenas-whit e matter differentiation, without intracranial hemorrhage, extra-axial fluid collection, mass effect or acute large vessel infarct. The ventricles are normal in size. The basal cisterns are patent. The skull and visible facial bones are intact. The paranasal sinuses, mastoid air cells and middle ear ca vities are well-aerated. The soft tissues of the scalp are unremarkable. IMPRESSION: No acute intracranial abnormality.
[2024-12-03 08:26] LABS: BUN/Creatinine Ratio 21.1 (10.0-20.0); Blood Urea Nitrogen 19 mg/dL (9-23)
[2024-12-03 08:28] VITALS: PULSE 76; RESP 14; O2SAT 97
[2024-12-03 08:35] LABS: Glucose 72 mg/dL (74-106)
[2024-12-03] MEDS: levETIRAcetam 500 mg/100ml 100 ML IV SCH (09:28)
[2024-12-03] MEDS: LACOSAMIDE 50 MG TAB PO SCH (10:13)
[2024-12-03] MEDS: OXcarbazepine 300 MG TAB PO SCH (10:13)
[2024-12-03 19:38] VITALS: PULSE 98; RESP 18; O2SAT 97
[2024-12-03 21:00] VITALS: BP 117/75; PULSE 89; RESP 20; TEMP 98.1; O2SAT 99
[2024-12-03 21:28] VITALS: BP 117/75; PULSE 88; PULSE 89; RESP 16; RESP 20; TEMP 98.1; O2SAT 95; O2SAT 99
[2024-12-03] MEDS: QUEtiapine FUMARATE 100 MG TAB PO SCH (22:09)
[2024-12-04] VITALS (8 sets, daily range): BP systolic 106–153; BP diastolic 65–97; PULSE 62–131; RESP 17–20; TEMP 97.4–99; O2SAT 93–99
[2024-12-04 05:57] LABS: Basophils # (auto) 0 10 ^3/uL (0-0.2); Basophils % (auto) 0.3 % (0.0-2.0); Eosinophils # (auto) 0.1 10 ^3/uL (0-0.8); Eosinophils % (auto) 2.9 % (0.0-7.0); Hematocrit 46.1 % (41.0-53.0); Hemoglobin 15.4 g/dL (13.5-17.5); Lymphocytes # (auto) 1.7 10 ^3/uL (0.4-5.4); Lymphocytes % (auto) 35.2 % (10.0-50.0); Mean Corpuscular Hemoglobin 30.5 pg (28.0-32.0); Mean Corpuscular Hgb Conc. 33.4 g/dL (32.0-36.0); Mean Corpuscular Volume 91.4 fL (80.0-100.0); Monocytes # (auto) 0.5 10 ^3/uL (0-1.3); Monocytes % (auto) 11.4 % (0.0-12.0); Neutrophils # (auto) 2.4 10 ^3/uL (1.6-8.6); Neutrophils % (auto) 50.2 % (37.0-80.0); Nucleated Red Blood Cells % 0.4 %; Platelet Count (auto) 248 10^3/uL (140-450); Red Blood Cells 5.04 10^6/uL (4.5-5.90); Red Cell Distribution Width 14.4 % (11.8-14.3); White Blood Cell 4.8 10^3/uL (4.4-10.8)
[2024-12-04 06:11] LABS: Chloride 102 mmol/L (98-107); Potassium 4.1 mmol/L (3.5-5.1); Sodium 139 mmol/L (136-145)
[2024-12-04 06:12] LABS: Anion Gap 11 (5-15); Calcium 9.7 mg/dL (8.7-10.4); Carbon Dioxide 26 mmol/L (20-31)
[2024-12-04 06:17] LABS: Blood Urea Nitrogen 16 mg/dL (9-23); Glucose 88 mg/dL (74-106)
--- NOTE | 2024-12-04 13:56 | DVHPN2 ---
Subjective Patient denies any new symptoms. Reviewed: Care Plan, H&P, Labs, Medications, Previous Orders Changes from previous H/P or p: No Changes General: Per HPI Objective Vitals Vital Signs Date Time Temp Pulse Resp B/P (MAP) Pulse Ox O2 Delivery O2 Flow Rate FiO2 12/04/24 09:00 98.3 96 19 111/65 (80) 97 98.3 12/04/24 08:00 Room Air* 0 21 Intake/Output Intake and Output 12/04/24 06:59 Intake Total 300 ml Output Total 750 ml Balance -450 ml Intake Oral 300 ml Output Urine Total 750 ml General Appearance: Alert, Oriented X3, Cooperative, mild distress HEENT: Atraumatic, PERRLA Lungs: Clear to auscultation, Normal air movement Cardiovascular: Normal S1, Normal S2 Abdomen: Normal bowel sounds, Soft, No tenderness, No hepatospenomegaly Back: Flank Tenderness, Midline Tenderness Musculoskeletal: Normal sensory function, Normal motor function Extremities: No clubbing, No cyanosis, No edema, Normal pulses, No tenderness/swelling Neuro: Normal gait, Normal speech Psych/Mental Status: Mental status NL, Mood NL Medications Current Medications Medications Dose Ordered Sig/Miki Route Start Time Stop Time Status Last Admin Dose Admin Nitroglycerin 0.4 mg Q5MINP PRN SL 12/03/24 07:15 Morphine Sulfate 2 mg Q30M PRN IV 12/03/24 07:15 Lacosamide 50 mg DAILY PO 12/03/24 10:00 12/04/24 08:10 50 MG Oxcarbazepine 600 mg BID PO 12/03/24 10:00 12/04/24 08:10 600 MG Quetiapine Fumarate 400 mg HS PO 12/03/24 22:00 12/03/24 22:09 400 MG Levetiracetam 100 ml @ 400 mls/hr BID IV 12/03/24 10:00 12/04/24 10:09 400 MLS/HR Morphine Sulfate 1 mg Q4HPRN PRN IV 12/03/24 07:15 Acetaminophen/ Hydrocodone Bitart 1 tab Q6HPRN PRN PO 12/03/24 07:15 Acetaminophen 500 mg Q8HP PRN PO 12/03/24 07:15 Ondansetron HCl 4 mg Q6HP PRN IV 12/03/24 07:15 Lorazepam 1 mg Q5MINP PRN IV 12/03/24 07:30 Laboratory Results Laboratory Tests 12/04/24 04:40 Chemistry Test 12/04/24 04:40 Calcium Level 9.7 mg/dL (8.7-10.4) Labs and/or images reviewed: Labs reviewed by me, Image(s) reviewed by me Assessment/Plan Assessment/Plan Impression: -breakthrough seizures -epilepsy -schizophrenia Plan: -events: No events overnight. -neurology consultation : Pending -restart antiepileptics -pain management -restart antipsychotic medication -repeat labs in a.m. -IV lorazepam p.r.n. seizure activity -seizure precautions -continue current treatment plan until seen by Neurology. Total time spent with patient discussing and formulating plan of care: 35 minutes. This medical document was created using an electronic medical record system with [employer] dictation system. Although this document has been carefully reviewed, there may still be some phonetic and typographical errors. These areas are purely typographical due to imperfections of the software programs, and do not reflect any compromise in the patient's medical care. Plan discussed with: Patient, Other (RN) My Orders Orders - ELMA COX NP Procedure Category Date Status Time Mrsa Screen CHEYANNE 12/03/24 In Process 22:26 Date of Service: Dec 04, 2024 Billing Provider: ELMA COX NP Common Visit Codes: [id number] INP/OBS CARE(HIGH) ELMA COX NP Dec 04, 2024 13:56
[2024-12-05] VITALS (9 sets, daily range): BP systolic 112–144; BP diastolic 70–93; PULSE 52–80; RESP 14–18; TEMP 97.7–98.5; O2SAT 96–99
[2024-12-05] MEDS: HYDROcodone-ACET 5/325MG TAB PO PRN (09:27)
--- NOTE | 2024-12-05 14:37 | DVHPN2 ---
Subjective Patient denies any new symptoms. Reviewed: Care Plan, H&P, Labs, Medications, Previous Orders Changes from previous H/P or p: No Changes General: Per HPI Objective Vitals Vital Signs Date Time Temp Pulse Resp B/P (MAP) Pulse Ox O2 Delivery O2 Flow Rate FiO2 12/05/24 13:00 98.4 76 16 139/88 (105) 99 98.4 12/05/24 07:45 Room Air* 0 21 Intake/Output Intake and Output 12/05/24 07:00 Intake Total 100 ml Balance 100 ml IV Total 100 ml General Appearance: Alert, Oriented X3, Cooperative, mild distress HEENT: Atraumatic, PERRLA Lungs: Clear to auscultation, Normal air movement Cardiovascular: Normal S1, Normal S2 Abdomen: Normal bowel sounds, Soft, No tenderness, No hepatospenomegaly Back: Flank Tenderness, Midline Tenderness Musculoskeletal: Normal sensory function, Normal motor function Extremities: No clubbing, No cyanosis, No edema, Normal pulses, No tenderness/swelling Neuro: Normal gait, Normal speech Psych/Mental Status: Mental status NL, Mood NL Medications Current Medications Medications Dose Ordered Sig/Miki Route Start Time Stop Time Status Last Admin Dose Admin Nitroglycerin 0.4 mg Q5MINP PRN SL 12/03/24 07:15 Morphine Sulfate 2 mg Q30M PRN IV 12/03/24 07:15 Lacosamide 50 mg DAILY PO 12/03/24 10:00 12/05/24 09:27 50 MG Oxcarbazepine 600 mg BID PO 12/03/24 10:00 12/05/24 09:27 600 MG Levetiracetam 100 ml @ 400 mls/hr BID IV 12/03/24 10:00 12/05/24 09:26 400 MLS/HR Morphine Sulfate 1 mg Q4HPRN PRN IV 12/03/24 07:15 Acetaminophen/ Hydrocodone Bitart 1 tab Q6HPRN PRN PO 12/03/24 07:15 12/05/24 09:27 1 TAB Acetaminophen 500 mg Q8HP PRN PO 12/03/24 07:15 Ondansetron HCl 4 mg Q6HP PRN IV 12/03/24 07:15 Lorazepam 1 mg Q5MINP PRN IV 12/03/24 07:30 Quetiapine Fumarate 600 mg HS PO 12/05/24 22:00 UNV Laboratory Results Laboratory Tests 12/04/24 04:40 Microbiology Microbiology Date/Time Source Procedure Growth Status 12/03/24 22:20 Nose MRSA Screen - Final Complete Labs and/or images reviewed: Labs reviewed by me, Image(s) reviewed by me Assessment/Plan Assessment/Plan Impression: -breakthrough seizures -epilepsy -schizophrenia Plan: -events: No events overnight. Discussed case with Neurology. Please see patient. Patient with auditory hallucinations per primary nurse. -neurology consultation : Recommendations appreciated. -restart antiepileptics -pain management -restart antipsychotic medication -repeat labs in a.m. -IV lorazepam p.r.n. seizure activity -seizure precautions -continue current treatment plan until seen by Neurology. Total time spent with patient discussing and formulating plan of care: 35 minutes. This medical document was created using an electronic medical record system with [employer] dictation system. Although this document has been carefully reviewed, there may still be some phonetic and typographical errors. These areas are purely typographical due to imperfections of the software programs, and do not reflect any compromise in the patient's medical care. Plan discussed with: Patient, Other (RN) My Orders Orders - ELMA COX NP Procedure Category Date Status Time Quetiapine Fumarate PHA 12/05/24 Logged Tablet (Seroquel Tab 22:00 Date of Service: Dec 05, 2024 Billing Provider: ELMA COX NP Common Visit Codes: [id number] INP/OBS CARE(HIGH) ELMA COX NP Dec 05, 2024 14:37
[2024-12-05] MEDS: QUEtiapine FUMARATE 100 MG TAB PO SCH (21:21)
--- NOTE | 2024-12-05 21:39 | DVHINCON2 ---
Date of service: Dec 05, 2024 Referring Physician Cole Reason for Consultation Breakthrough seizure History of Present Illness is a 39 years old right-handed gentleman with a history of schizophrenia, seizure disorder, he was admitted to the [facility] on 12/03/2024 with a chief complaint of seizure activity. At that time, he is alert and oriented, but he is not a good historian, the history is obtained from him and his mother I saw him on 12/01/2024 for seizure After he was discharged from the [facility] on 12/01/2024, he was not discharged with prescription of Xcopri as a result, he did not take it after he returned home. 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 He is given Keppra On 11/29/2024, when he was walking at home, he did not feel good, and he could not talk, this was followed by big shaking in whole-body without loss of consciousness, which was consistent with his seizure, and mother dial 911. He has seizure disorder since age of 1 to 1 years old, in that he has spells of shaking all over body with loss of consciousness, sometimes with biting in the mouth, recently he has seizure 1-2 times monthly, mostly when he is asleep, and he remembers some of the seizure attacks He has a VNS stimulator He saw a neurologist. He saw a [facility] specialist long time ago He is on Vimpat 50 mg b.i.d., Xcopri 200 mg two tablets at bedtime, lamotrigine 300 mg two tablets in the morning He was on Trileptal CBC, 11/29/2024: Unremarkable, 12/03/2024: Unremarkable BMP, 11/29/2024: Unremarkable, 12/03/2024: Unremarkable CT head, 07/22/2024: No acute intracranial abnormality CT head, 12/03/2024: No acute intracranial abnormality Past Medical History Schizophrenia, seizure Past Surgical History Appendectomy, VNS stimulator Family History: Asthma G8 BROTHER Diabetes mellitus G8 FATHER Malignant neoplasm of breast grandma Family History Diabetes, asthma, cancer Social History He has no history of smoking, alcohol or drug abuse Allergies: Coded Allergies: NO KNOWN ALLERGIES (Unverified , 02/28/19) Home Meds Reported Medications Lamotrigine (LAMOTRIGINE ER) 300 Mg Tab 11/30/24 Lacosamide (Lacosamide) 50 Mg Tab 11/30/24 Quetiapine Fumerate (QUETIAPINE FUMARATE) 400 Mg Tab 11/30/24 Oxcarbazepine (Trileptal) 600 Mg Tab, 600 MG PO BID, TAB 03/01/19 Trazodone Hcl (Trazodone Hcl) 100 Mg Tab, 100 MG PO HS, MG 03/01/19 Quetiapine Fumerate (Seroquel) 25 Mg Tab, 800 MG PO HS for 30 Days, MG 02/28/19 Lamotrigine (Lamictal) 25 Mg Tab, 50 MG PO TID, #60 TAB 1 Refill 02/28/19 Ondansetron (Zofran) 4 Mg Tab, 8 MG PO TIDPRN PRN for NAUSEA / VOMITING, MG 02/28/19 Multiple Vitamin (Multivitamins) Tab, 1 TAB PO DAILY, #90 TAB 3 Refills 02/28/19 Docusate Sodium (Docusate Sodium) 100 Mg Tab, 200 MG PO BIDP PRN for FOR CONSTIPATION, MG 02/28/19 Benztropine Mesylate (Benztropine Mesylate) 1 Mg Tab, 1 TAB PO DAILY, #60 TAB 02/28/19 Paliperidone (Invega) 3 Mg Tab, 1 TAB PO DAILY, #30 TAB 2 Refills 02/28/19 Current Medications Current Medications Medications (Trade) Dose Ordered Sig/Miki Route PRN Reason Start Time Stop Time Status Last Admin Quetiapine Fumarate (SEROquel TABLET) 600 mg HS PO 12/05/24 22:00 12/05/24 21:21 Review of Systems As above, the other systems are negative Vital Signs Vital Signs Date Time Temp Pulse Resp B/P (MAP) Pulse Ox O2 Delivery O2 Flow Rate FiO2 12/05/24 20:47 98.5 52 18 138/84 (102) 96 98.5 12/05/24 20:00 Room Air* 0 21 Physical Exam GENERAL EXAM: General: the patient is well developed and nourished. No acute distress. HEENT: Normocephalic, neck is supple, no carotid bruits. No mass. RESPIRATORY: Normal respiratory effort with symmetrical lung expansion. Lungs clear to auscultation. CARDIOVASCULAR: Regular rate and rhythm with no murmurs. S1, S2. ABDOMEN: Soft, nontender, normal bowel sound NEUROLOGICAL: MENTAL STATUS: Awake and alert. Oriented to person, place, time and general circumstances. Able to give personal history. SPEECH, LANGUAGE, HIGHER CORTICAL FUNCTION: no aphasia or dysathria. CRANIAL NERVES: #2: Intact visual acuña to confrontation. The optic discs were sharp. #3,4,6: Pupils are equal, round and reactive. EOMs full and conjugate. #5: Facial sensation intact in all three divisions bilaterally. Mandibular strength intact. #7: Facial muscles symmetrical and strength intact. #8: Hearing grossly normal to voice. #9,10: Uvula and soft palate rise in the midline. Swallow and voice are normal. #11: Trapezius and sternomastoid strength intact bilaterally. #12: Tongue midline. No fasciculations or atrophy. SENSATION: Sensation to touch and pinprick is normal. MOTOR: Normal tone in the upper and lower extremity. Normal muscle bulk. No fasciculations. Mild tremor in the hands. Muscle strength of the major groups in the upper extremities is 5/5. Muscle strength of the major groups in the lower extremities is 5/5. REFLEXES: Deep tendon reflexes normal and symmetrical. No pathological reflexes. CEREBELLAR/COORDINATION: Finger to nose is normal bilaterally. GAIT/STATION: deferred Labs/Diagnostic Data Labs Test 12/04/24 04:40 Range/Units White Blood Count 4.8 4.4-10.8 10^3/uL Red Blood Count 5.04 4.5-5.90 10^6/uL Hemoglobin 15.4 13.5-17.5 g/dL Hematocrit 46.1 41.0-53.0 % Mean Corpuscular Volume 91.4 80.0-100.0 fL Mean Corpuscular Hemoglobin 30.5 28.0-32.0 pg Mean Corpuscular Hemoglobin Concent 33.4 32.0-36.0 g/dL Red Cell Distribution Width 14.4 H 11.8-14.3 % Platelet Count 248 140-450 10^3/uL Mean Platelet Volume 7.3 6.9-10.8 fL Neutrophils (%) (Auto) 50.2 37.0-80.0 % Lymphocytes (%) (Auto) 35.2 10.0-50.0 % Monocytes (%) (Auto) 11.4 0.0-12.0 % Eosinophils (%) (Auto) 2.9 0.0-7.0 % Basophils (%) (Auto) 0.3 0.0-2.0 % Neutrophils # (Auto) 2.4 1.6-8.6 10 ^3/uL Lymphocytes # (Auto) 1.7 0.4-5.4 10 ^3/uL Monocytes # (Auto) 0.5 0-1.3 10 ^3/uL Eosinophils # (Auto) 0.1 0-0.8 10 ^3/uL Basophils # (Auto) 0 0-0.2 10 ^3/uL Nucleated Red Blood Cells 0.4 % Sodium Level 139 136-145 mmol/L Potassium Level 4.1 3.5-5.1 mmol/L Chloride Level 102 98-107 mmol/L Carbon Dioxide Level 26 20-31 mmol/L Anion Gap 11 5-15 Blood Urea Nitrogen 16 9-23 mg/dL Creatinine 0.89 0.700-1.30 mg/dL Glomerular Filtration Rate Calc 110 >90 mL/min BUN/Creatinine Ratio 18.0 10.0-20.0 Serum Glucose 88 74-106 mg/dL Calcium Level 9.7 8.7-10.4 mg/dL Microbiology Date/Time Source Procedure Growth Status 12/03/24 22:20 Nose MRSA Screen - Final Complete Assessment Grand mal seizure, at least some of them are nonepileptic Plan/Recommendation Monitoring Supportive treatment Telemetry Increase the Vimpat to 100 mg b.i.d. Xcopri 200 mg Bid Lamotrigine 300 mg Bid D/C keppar Ativan for seizure breakthrough I advised his mother to bring him back to [facility] Plan discussed with: Patient, Other RODOLFO AEVRY MD Dec 05, 2024 21:39
[2024-12-05] MEDS: LACOSAMIDE 50 MG TAB PO SCH (23:05)
[2024-12-06 01:00] VITALS: BP 111/83; PULSE 93; RESP 20; TEMP 98.2; O2SAT 98
[2024-12-06 05:00] VITALS: BP 128/75; PULSE 118; RESP 20; TEMP 98.8; O2SAT 99
[2024-12-06 08:00] VITALS: PULSE 67; PULSE 81; RESP 20; O2SAT 99
[2024-12-06 09:00] VITALS: BP 122/92; PULSE 81; RESP 20; TEMP 97.9; O2SAT 99
[2024-12-06] MEDS: lamoTRIgine 100 MG TAB PO SCH (09:47)
[2024-12-06] MEDS ORDERED: LACO50TA2 PO (10:43)
--- NOTE | 2024-12-06 10:51 | DVHDS2 ---
Discharge Summary Date of Admission Dec 03, 2024 at 07:12 Date of Discharge: Dec 06, 2024 Admitting Diagnosis Breakthrough seizure Labs/Diagnostic Data: Laboratory Results Test 12/04/24 04:40 White Blood Count 4.8 10^3/uL (4.4-10.8) Red Blood Count 5.04 10^6/uL (4.5-5.90) Hemoglobin 15.4 g/dL (13.5-17.5) Hematocrit 46.1 % (41.0-53.0) Mean Corpuscular Volume 91.4 fL (80.0-100.0) Mean Corpuscular Hemoglobin 30.5 pg (28.0-32.0) Mean Corpuscular Hemoglobin Concent 33.4 g/dL (32.0-36.0) Red Cell Distribution Width 14.4 % (11.8-14.3) Platelet Count 248 10^3/uL (140-450) Mean Platelet Volume 7.3 fL (6.9-10.8) Neutrophils (%) (Auto) 50.2 % (37.0-80.0) Lymphocytes (%) (Auto) 35.2 % (10.0-50.0) Monocytes (%) (Auto) 11.4 % (0.0-12.0) Eosinophils (%) (Auto) 2.9 % (0.0-7.0) Basophils (%) (Auto) 0.3 % (0.0-2.0) Neutrophils # (Auto) 2.4 10 ^3/uL (1.6-8.6) Lymphocytes # (Auto) 1.7 10 ^3/uL (0.4-5.4) Monocytes # (Auto) 0.5 10 ^3/uL (0-1.3) Eosinophils # (Auto) 0.1 10 ^3/uL (0-0.8) Basophils # (Auto) 0 10 ^3/uL (0-0.2) Nucleated Red Blood Cells 0.4 % Sodium Level 139 mmol/L (136-145) Potassium Level 4.1 mmol/L (3.5-5.1) Chloride Level 102 mmol/L (98-107) Carbon Dioxide Level 26 mmol/L (20-31) Anion Gap 11 (5-15) Blood Urea Nitrogen 16 mg/dL (9-23) Creatinine 0.89 mg/dL (0.700-1.30) Glomerular Filtration Rate Calc 110 mL/min (>90) BUN/Creatinine Ratio 18.0 (10.0-20.0) Serum Glucose 88 mg/dL (74-106) Calcium Level 9.7 mg/dL (8.7-10.4) Other Laboratory Tests 12/04/24 04:40 Brief Hx & Hospital Course: History of Present Illness Patient was a 39-year-old male transported to the emergency room by EMS after having multiple seizures at home. After arrival to the hospital, the patient had an additional seizure, and at the time of assessment the patient was noted to be in a postictal state. Patient was treated with Ativan 1 mg IV. The patient was recently discharged yesterday after being admitted in the hospital three days ago, with the patient being seizure free during the entire hospital stay. Patient was cleared by Neurology. Apparently, the patient did not obtain his new prescription for antiseizure medication. Other significant history of the patient includes schizophrenia. Course of hospitalization: Patient was restarted on antiepileptic therapy while in the hospital. Seizure episodes have ceased. Neurology consultation was obtained. Patient will be discharged home with prescriptions provided by Dr. Edwards. He was instructed to follow these new medications in lieu of his previous antiepileptic therapy. He will continue all previous antipsychotic medications. Physical examination General: Alert and Oriented x3. No acute distress. Well-nourished. Eyes: EOMI. Anicteric. HENT: Moist mucous membranes. Lungs: Clear to auscultation bilaterally. No accessory muscle use. Cardiovascular: Regular rate and rhythm. No murmur. No JVD. Abdomen: Soft, non-tender and non-distended. No palpable masses. Extremities: No edema. Non-tender. Skin: No rashes or lesions. Warm. Neurologic: No focal neurological deficits. CN II-XII grossly intact, but not individually tested. Psychiatric: Cooperative. Appropriate mood and affect. Total time spent with patient discussing and formulating plan of care: 35 minutes. This medical document was created using an electronic medical record system with [employer] system. Although this document has been carefully reviewed, there may still be some phonetic and typographical errors. These areas are purely typographical due to imperfections of the software programs, and do not reflect any compromise in the patient's medical care. Consults/Reason for consult Neurology: Recurrent seizures Condition at Discharge: Fair Final Diagnosis/Problems List Breakthrough seizures Secondary diagnosis: -epilepsy -schizophrenia Discharge Disposition: Home Discharge Instruct/Medications Diet: Regular Activity: No Restrictions, As Tolerated Follow Up/Referral: Neurology in 1-2 weeks Medications: Refer to medication reconciliation 36 Discharge Statement: "Patient was advised to return to the ER or call 911 if any headaches, dizziness, shortness of breath, chest pain, abdominal pain, bleeding, fevers, or worsening of medical condition. Patient was counseled about treatment plan, medications, possible side effects, patientverbalized understanding. All questions were answered to the best of my ability. This discharge took greater then 30 minutes in planning, reviewing documentation, counseling the patient, and discussing with other team members." ASSESSMENT ASSESSMENT Assessment Date of Service: Dec 06, 2024 Billing Provider: ELMA COX NP Common Visit Codes: 73507-XEW/[id number] DISCH DAY >30min ELMA COX NP Dec 06, 2024 10:51
--- NOTE | 2024-12-06 11:09 | DVHPN2 ---
Progress Note - Dictate Date Seen: Dec 06, 2024 Medical Necessity Reason Pt with a Central, PICC or Fol: No Subjective is a 39 years old right-handed gentleman with a history of schizophrenia, seizure disorder, he was admitted to the [facility] on 12/03/2024 with a chief complaint of seizure activity. I saw him on 12/01/2024 for seizure I have seen and examined patient, I have discussed with Cole, he fine, no seizure activity He was on Vimpat 50 mg b.i.d., Xcopri 200 mg two tablets at bedtime, lamotrigine 300 mg two tablets in the morning He was not on Trileptal CBC, 11/29/2024: Unremarkable, 12/03/2024: Unremarkable BMP, 11/29/2024: Unremarkable, 12/03/2024: Unremarkable CT head, 07/22/2024: No acute intracranial abnormality CT head, 12/03/2024: No acute intracranial abnormality vital signs Vital Sign Date Time Temp Pulse Resp B/P (MAP) Pulse Ox O2 Delivery O2 Flow Rate FiO2 12/06/24 09:00 97.9 81 20 122/92 (102) 99 97.9 12/06/24 08:00 Room Air* 0 21 Total Intake and Output 12/05/24 12/05/24 12/06/24 14:59 22:59 06:59 Intake Total 460 ml 1360 ml Balance 460 ml 1360 ml medications Current Medications Medications Dose Ordered Sig/Miki Route Start Time Stop Time Status Last Admin Dose Admin Nitroglycerin 0.4 mg Q5MINP PRN SL 12/03/24 07:15 Morphine Sulfate 2 mg Q30M PRN IV 12/03/24 07:15 Morphine Sulfate 1 mg Q4HPRN PRN IV 12/03/24 07:15 Acetaminophen/ Hydrocodone Bitart 1 tab Q6HPRN PRN PO 12/03/24 07:15 12/05/24 09:27 1 TAB Acetaminophen 500 mg Q8HP PRN PO 12/03/24 07:15 Ondansetron HCl 4 mg Q6HP PRN IV 12/03/24 07:15 Lorazepam 1 mg Q5MINP PRN IV 12/03/24 07:30 Quetiapine Fumarate 600 mg HS PO 12/05/24 22:00 12/05/24 21:21 600 MG Lacosamide 100 mg DAILY PO 12/05/24 22:30 12/06/24 09:48 100 MG Lamotrigine 300 mg Q12HR PO 12/06/24 10:00 12/06/24 09:47 300 MG Patient Own Medication 400 mg HS PO 12/06/24 22:00 objective General: the patient is well developed and nourished. No acute distress. MENTAL STATUS: Awake and alert. Oriented to person, place, time and general circumstances. Able to give personal history. SPEECH, LANGUAGE, HIGHER CORTICAL FUNCTION: no aphasia or dysathria. CRANIAL NERVES: Pupils are equal, round and reactive. EOMs full and conjugate. Facial sensation intact in all three divisions bilaterally. Mandibular strength intact. Facial muscles symmetrical and strength intact. SENSATION: Sensation to touch and pinprick is normal. MOTOR: Normal tone in the upper and lower extremity. Normal muscle bulk. No fasciculations. Mild tremor in the hands. Muscle strength of the major groups in the extremities is 5/5. REFLEXES: Deep tendon reflexes normal and symmetrical. No pathological reflexes. CEREBELLAR/COORDINATION: Finger to nose is normal bilaterally. GAIT/STATION: deferred laboratory and microbiology Laboratory Tests 12/04/24 04:40 Test 12/04/24 04:40 Range/Units Serum Glucose 88 74-106 mg/dL Problem List Grand mal seizure, at least some of them are nonepileptic Assessment/Plan Monitoring Supportive treatment Telemetry Vimpat 100 mg b.i.d. 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
[2024-12-06 12:47] VITALS: BP 132/99; PULSE 60; RESP 20; TEMP 98.2; O2SAT 99
[2024-12-06 13:09] VITALS: BP 132/99; PULSE 60; RESP 20; TEMP 98.2; O2SAT 99
[2024-12-06] MEDS ORDERED: CENOBAMATE PO SCH (22:00)
== END 2024-12-06 14:17 | disposition home or self-care (01) | DRG 53 ==
LOC: EDBD 06:17 → ER 06:17 → OVERFLOW 07:12 → TELE-WESTW 21:35
PROVIDERS: ADMIT Nurse Practitioner Acute Care; ATTEND Nurse Practitioner Acute Care
DX: G40.409 Other generalized epilepsy and epileptic syndromes, not intractable, without status epilepticus (principal); F20.9 Schizophrenia, unspecified; Z90.49 Acquired absence of other specified parts of digestive tract; Z79.899 Other long term (current) drug therapy; Z82.5 Family history of asthma and other chronic lower respiratory diseases; Z83.3 Family history of diabetes mellitus; Z80.3 Family history of malignant neoplasm of breast; Z79.891 Long term (current) use of opiate analgesic; Z79.1 Long term (current) use of non-steroidal anti-inflammatories (NSAID)
CPT/HCPCS: 36415; 70450; 80048; 85025; 87081; 96365; 96375; 99291; G0378

== ENCOUNTER 2025-01-10 08:38 | Inpatient (IN) | payer MEDICAID ==
[~2025-01-10] VITALS: Ht 162.6 cm; Wt 60.1 kg
[~2025-01-10 08:38] MED LIST changes: +LACO50TA2 PO; -OXCA600T3 PO
[2025-01-10] MEDS: SODIUM CHLORIDE 0.9% 1,000 ML IV ONE (09:20)
--- NOTE | 2025-01-10 09:41 | ED.PDOC ---
History of Present Illness HPI Comments 39M BIBA w/ prior Hx of Sz which all may be associated to the c/c of Sz. EMS report that the pt had an unwitnessed Sz, with the mother finding the pt on the ground unconscious. Pt notes to the EMS that he has not taken his medications for 2 days due from running out. PMHx of Schizophrenia. SHx of Appendectomy. Denies chills, fever, N/V/D, SOB, CP or no other associated symptoms, modifiers, recent injuries or sick contacts at this time. Chief Complaint: Seizure Time Seen by MD: 09:00 Primary Care Provider: NONE Reviewed Notes: Nurses Notes, Hospital Superintendent Notes, Medications, Allergies Allergies: Coded Allergies: Diazepam (Verified Adverse Reaction, Intermediate, 01/10/25) Home Meds Reported Medications Lacosamide (Vimpat) 50 Mg Tab, 50 MG PO BID for 30 Days, #60 TAB 1 Refill 12/06/24 Lamotrigine (LAMOTRIGINE ER) 300 Mg Tab 11/30/24 Lacosamide (Lacosamide) 50 Mg Tab 11/30/24 Quetiapine Fumerate (QUETIAPINE FUMARATE) 400 Mg Tab 11/30/24 Trazodone Hcl (Trazodone Hcl) 100 Mg Tab, 100 MG PO HS, MG 03/01/19 Quetiapine Fumerate (Seroquel) 25 Mg Tab, 800 MG PO HS for 30 Days, MG 02/28/19 Lamotrigine (Lamictal) 25 Mg Tab, 50 MG PO TID, #60 TAB 1 Refill 02/28/19 Ondansetron (Zofran) 4 Mg Tab, 8 MG PO TIDPRN PRN for NAUSEA / VOMITING, MG 02/28/19 Multiple Vitamin (Multivitamins) Tab, 1 TAB PO DAILY, #90 TAB 3 Refills 02/28/19 Docusate Sodium (Docusate Sodium) 100 Mg Tab, 200 MG PO BIDP PRN for FOR CONSTIPATION, MG 02/28/19 Benztropine Mesylate (Benztropine Mesylate) 1 Mg Tab, 1 TAB PO DAILY, #60 TAB 02/28/19 Paliperidone (Invega) 3 Mg Tab, 1 TAB PO DAILY, #30 TAB 2 Refills 02/28/19 Information Source: Patient, Emergency Med Personnel Mode of Arrival: EMS Severity: Moderate Timing: Minutes Duration: Since onset, Minutes Prehospital treatment: None Past Medical History PAST MEDICAL HISTORY: Schizophrenia, Seizures Surgical History: Appendectomy Family History Family History: Reviewed,noncontributory to illness, Unknown Social History Smoker: Non-Smoker Alcohol: Denies ETOH Use Drugs: Denies Drug Use Lives In: Home Constitutional: denies: chills, diaphoresis, fatigue, fever, malaise, sweats, weakness, others EENTM: denies: blurred vision, double vision, ear bleeding, ear discharge, ear drainage, ear pain, ear ringing, eye pain, eye redness, hearing loss, mouth pain, mouth swelling, nasal discharge, nose bleeding, nose congestion, nose pain, photophobia, tearing, throat pain, throat swelling, voice changes, others Respiratory: denies: cough, hemoptysis, orthopnea, SOB at rest, shortness of breath, SOB with excertion, stridor, wheezing, others Cardiovascular: denies: chest pain, dizzy spells, diaphoresis, Dyspnea on exertion, edema, irregular heart beat, left arm pain, lightheadedness, palpitations, PND, syncope, others Gastrointestinal: denies: abdomen distended, abdominal pain, blood streaked bowels, constipated, diarrhea, dysphagia, difficulty swallowing, hematemesis, melena, nausea, poor appetite, poor fluid intake, rectal bleeding, rectal pain, vomiting, others Genitourinary: denies: burning, dysuria, flank pain, frequency, hematuria, incontinence, penile discharge, penile sore, pain, testicle pain, testicle swelling, urgency, others Neurological: reports: seizure; denies: dizziness, fainting, headache, left sided numbness, left sided weakness, numbness, paresthesia, pre-existing deficit, right sided numbness, right sided weakness, speech problems, tingling, tremors, weakness, others Musculoskeletal: denies: back pain, gout, joint pain, joint swelling, muscle pain, muscle stiffness, neck pain, others Integumetry: denies: bruises, change in color, change in hair/nails, dryness, laceration, lesions, lumps, rash, wounds, others Allergic/Immunocompromised: denies: Difficulty Healing, Frequent Infections, Hives, Itching, others Hematologic/Lymphatic: denies: anemia, blood clots, easy bleeding, easy bruising, swollen glands, others Endocrine: denies: excessive hunger, excessive sweating, excessive thirst, excessive urination, flushing, intolerance to cold, intolerance to heat, unexplained weight gain, unexplained weight loss, others Psychiatric: denies: anxiety, bipolar disorder, depression, hopeless, panic disorder, schizophrenia, sleepless, suicidal, others All Other Systems: Reviewed and Negative Physical Exam General Appearance: Moderate Distress, Normal HEENT: Normal ENT Inspection, Pharynx Normal, TMs Normal Neck: Full Range of Motion, Non-Tender, Normal, Normal Inspection Respiratory: Chest Non-Tender, Lungs Clear, No Accessory Muscle Use, No Respiratory Distress, Normal Breath Sounds Cardiovascular: No Edema, No JVD, No Murmur, No Gallop, Normal Peripheral Pulses, Regular Rate/Rhythm Breast Exam: Deferred Gastrointestinal: No Organomegaly, Non Tender, No Pulsatile Mass, Normal Bowel Sounds, Soft Genitalia: Deferred Pelvic: Deferred Rectal: Deferred Extremities: No calf tenderness, Normal capillary refill, Normal inspection, Normal range of motion, Non-tender, No pedal edema Musculoskeletal : Apperance: Normal Neurologic: Alert, gas analyst II-XII nml as Tested, No Motor Deficits, Normal Affect, Normal Mood, No Sensory Deficits Cerebellar Function: NOT DONE Reflexes: NOT DONE Skin: Dry, Normal Color, Warm Peripheral Pulses: 3+ Radial (R), 3+ Radial (L) Lymphatic: No Adenopathy Was a procedure done? Was a procedure done?: No EKG EKG : Pulse Rate (adult): 70 [place]: Normal Cardiac Rhythm: NSR Differential Dx Considerations may include: Seizure Electrolyte imbalance X-Ray, Labs, Meds, VS Vital Signs Date Time Temp Pulse Resp B/P (MAP) Pulse Ox O2 Delivery O2 Flow Rate FiO2 01/10/25 11:30 98.4 94 16 134/77 (96) 96 98.4 01/10/25 10:30 83 16 96 Room Air 01/10/25 10:30 98.1 83 16 135/93 (107) 96 98.1 01/10/25 08:57 98.4 100 18 147/88 (107) 97 98.4 01/10/25 08:50 99 Lab Test 01/10/25 09:26 Range/Units White Blood Count 5.0 4.4-10.8 10^3/uL Red Blood Count 4.34 L 4.5-5.90 10^6/uL Hemoglobin 13.6 13.5-17.5 g/dL Hematocrit 40.1 L 41.0-53.0 % Mean Corpuscular Volume 92.3 80.0-100.0 fL Mean Corpuscular Hemoglobin 31.3 28.0-32.0 pg Mean Corpuscular Hemoglobin Concent 33.8 32.0-36.0 g/dL Red Cell Distribution Width 14.4 H 11.8-14.3 % Platelet Count 279 140-450 10^3/uL Mean Platelet Volume 6.6 L 6.9-10.8 fL Neutrophils (%) (Auto) 73.0 37.0-80.0 % Lymphocytes (%) (Auto) 17.1 10.0-50.0 % Monocytes (%) (Auto) 8.8 0.0-12.0 % Eosinophils (%) (Auto) 0.6 0.0-7.0 % Basophils (%) (Auto) 0.5 0.0-2.0 % Neutrophils # (Auto) 3.7 1.6-8.6 10 ^3/uL Lymphocytes # (Auto) 0.9 0.4-5.4 10 ^3/uL Monocytes # (Auto) 0.4 0-1.3 10 ^3/uL Eosinophils # (Auto) 0 0-0.8 10 ^3/uL Basophils # (Auto) 0 0-0.2 10 ^3/uL Nucleated Red Blood Cells 0.1 % Sodium Level 140 136-145 mmol/L Potassium Level 3.9 3.5-5.1 mmol/L Chloride Level 104 98-107 mmol/L Carbon Dioxide Level 27 20-31 mmol/L Anion Gap 9 5-15 Blood Urea Nitrogen 15 9-23 mg/dL Creatinine 0.93 0.700-1.30 mg/dL Glomerular Filtration Rate Calc 106 >90 mL/min BUN/Creatinine Ratio 16.1 10.0-20.0 Serum Glucose 83 74-106 mg/dL Calcium Level 9.4 8.7-10.4 mg/dL Current Medications Medications (Trade) Dose Ordered Sig/Miki Route Start Time Stop Time Status Last Admin Sodium Chloride 1,000 ml @ 1,000 mls/hr Q1H ONCE IV 01/10/25 09:00 4/9/25 09:59 DC 01/10/25 09:20 Lorazepam (Ativan Inj) 1 mg ONCE ONCE IV 01/10/25 09:30 01/10/25 09:31 DC 01/10/25 10:23 Patient postictal. History of seizure. Has not been taking his medication. Vitals stable. Establish intravenous access. Was given fluids. Was given Ativan. Reviewed his history. Waiting for family. Continue monitoring. EKG reviewed does not show any acute changes. Time of 1ST Reevaluation: 09:30 Reevaluation 1ST: Unchanged Patient Education/Counseling: Diagnosis, Treatment, Prognosis Family Education/Counseling: No Family Present Departure 1 Departure Time of Disposition: 11:44 Impression: Primary Impression: Metabolic encephalopathy Additional Impression: Seizure Disposition: ADMITTED INPATIENT Admit to: Med Surg Condition: Guarded Critical Care Note Critical Care Time?: Yes (45 min-critical care time only) Critical care comment: Monitor seizure activity Stability Stability form required: No Heart Score Heart Score: Heart Score Response (Comments) Value History Slightly Suspicious 0 EKG Normal 0 Age <45 0 Risk Factors 1 or 2 risk factors 1 Troponin Normal limit 0 Total 1 I personally scribed for RAYMOND OLVERA MD ([email or web address]) on 01/10/25 at 09:41. Electronically submitted by Mykel Graves ([email or web address]). RAYMOND OLVERA MD Jan 10, 2025 09:41
[2025-01-10 09:48] LABS: Chloride 104 mmol/L (98-107); Potassium 3.9 mmol/L (3.5-5.1); Sodium 140 mmol/L (136-145)
[2025-01-10 09:49] LABS: Anion Gap 9 (5-15); Basophils # (auto) 0 10 ^3/uL (0-0.2); Basophils % (auto) 0.5 % (0.0-2.0); Carbon Dioxide 27 mmol/L (20-31); Eosinophils # (auto) 0 10 ^3/uL (0-0.8); Eosinophils % (auto) 0.6 % (0.0-7.0); Hematocrit 40.1 % (41.0-53.0); Hemoglobin 13.6 g/dL (13.5-17.5); Lymphocytes # (auto) 0.9 10 ^3/uL (0.4-5.4); Lymphocytes % (auto) 17.1 % (10.0-50.0); Mean Corpuscular Hemoglobin 31.3 pg (28.0-32.0); Mean Corpuscular Hgb Conc. 33.8 g/dL (32.0-36.0); Mean Corpuscular Volume 92.3 fL (80.0-100.0); Monocytes # (auto) 0.4 10 ^3/uL (0-1.3); Monocytes % (auto) 8.8 % (0.0-12.0); Neutrophils # (auto) 3.7 10 ^3/uL (1.6-8.6); Nucleated Red Blood Cells % 0.1 %; Platelet Count (auto) 279 10^3/uL (140-450); Red Blood Cells 4.34 10^6/uL (4.5-5.90); Red Cell Distribution Width 14.4 % (11.8-14.3)
[2025-01-10 09:50] LABS: Calcium 9.4 mg/dL (8.7-10.4)
[2025-01-10 09:54] LABS: BUN/Creatinine Ratio 16.1 (10.0-20.0); Blood Urea Nitrogen 15 mg/dL (9-23); Glucose 83 mg/dL (74-106)
[2025-01-10] MEDS: LORazepam 2MG/ML-1ML VIAL IV ONE (10:23)
[2025-01-10 11:56] VITALS: RESP 15; O2SAT 95
[2025-01-10] MEDS: ACETAMINOPHEN 500 MG TAB or CAP PO ONE (16:54)
[2025-01-10] MEDS ORDERED: ONDANSETRON HCL 4 MG/2 ML VIAL IV PRN (19:00)
[2025-01-10] MEDS ORDERED: ACETAMINOPHEN 325 MG TAB PO PRN (19:00)
[2025-01-10] MEDS ORDERED: LORazepam 2MG/ML-1ML VIAL IV PRN (19:00)
--- NOTE | 2025-01-10 19:15 | ECG ---
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
[2025-01-10 19:55] VITALS: PULSE 73; RESP 11; O2SAT 97
[2025-01-10 20:46] LABS: Urine Bacteria None Seen /hpf (None Seen)
[2025-01-10 21:06] LABS: Urine Blood Negative /uL (Negative); Urine Clarity Clear (Clear); Urine Color Light-Yellow (Yellow); Urine Mucus FEW (None Seen); Urine Protein, UAD Negative (Negative); Urine Specific Gravity 1.026 (1.001-1.035); Urine Squamous Epithelial Cell FEW /hpf (<5); Urine Urobilinogen Normal (Negative); Urine WBC 1 /HPF (0-3)
[2025-01-10] MEDS: LACOSAMIDE 50 MG TAB PO SCH (21:45)
[2025-01-10] MEDS: lamoTRIgine 100 MG TAB PO SCH (21:45)
[2025-01-10] MEDS: QUEtiapine FUMARATE 100 MG TAB PO SCH (21:45)
--- NOTE | 2025-01-10 21:45 | DVHHP2 ---
History of Present Illness Reason for Visit: Seizure History of Present Illness 39-year-old male presents for evaluation of seizure activity. Patient reports having a not witnessed seizure at home and being found unresponsive by his mother. Currently alert and oriented x4. No headache or blurred vision. No oral trauma. Patient reports not taking his medications for the past two days due to running out I am not being able to refill. Past Medical History Schizophrenia and seizure Past Surgical History Appendectomy Family History Noncontributory Smoke: No ALCOHOL: none Drugs: None Lives: with Family Review of Systems Review of Systems Review of systems are currently negative otherwise addressed in HPI. Allergies: Coded Allergies: Diazepam (Verified Adverse Reaction, Intermediate, 01/10/25) Medications Current Medications Medications Dose Ordered Sig/Miki Route Start Time Stop Time Status Last Admin Dose Admin Lamotrigine 150 mg Q12HR PO 01/10/25 22:00 Lacosamide 100 mg BID PO 01/10/25 22:00 Quetiapine Fumarate 300 mg HS PO 01/10/25 22:00 Lorazepam 1 mg Q5MINP PRN IV 01/10/25 19:00 Temazepam 15 mg QHSP PRN PO 01/10/25 19:00 Ondansetron HCl 4 mg Q4HP PRN IV 01/10/25 19:00 Acetaminophen 650 mg Q6HP PRN PO 01/10/25 19:00 Exam Vital Signs Vital Signs Date Time Temp Pulse Resp B/P (MAP) Pulse Ox O2 Delivery O2 Flow Rate FiO2 01/10/25 19:55 98.5 73 11 134/91 (105) 97 98.5 01/10/25 11:56 Room Air* 0 21 Exam Gen: 39-year-old male in mild distress. Skin: Warm, dry, normal color and texture, no rash. HEENT: Normocephalic atraumatic, mucous membranes moist and pink. Neck: Cervical and supraclavicular nodes normal without enlargement, trachea is midline, thyroid gland is normal without masses. Pulmonary: Clear to auscultation and percussion bilaterally. Cardiac: Regular rate and rhythm. No murmur Abdomen: Soft, nontender, nondistended, bowel sounds present all 4 quadrants, no guarding, no rigidity, no organomegaly. Extremities: No cyanosis, clubbing, no edema Neuro: Cranial nerves II through XII grossly intact, normal affect and speech, no focal motor deficits. Labs/Xrays ORDERING PHYSICIAN: DAKSHA REY MD PROCEDURE(s): HWOCT - HEAD WITHOUT CONTRAST REASON: ro bleed, multiple seizures ORDER NUMBER(s): [id number], ACCESSION NUMBER(s): [id number] CT HEAD WITHOUT CONTRAST INDICATION: ro bleed, multiple seizures EXAM DATE: 12/03/2024 07:56 AM COMPARISON: CT HEAD WITHOUT CONTRAST on DOS: 07/22/24, HEAD WITHOUT CONTRAST on DOS: 11/19/21 RADIATION DOSE: CTDIvol: 51 mGy, DLP: 915 mGy*cm PROCEDURE: CT scans of the head were obtained from the vertex to the skull base. Sagittal and coronal reconstructions were provided. All CT scans at this medical facility are performed using dose modulation tech niques as appropriate to a performed exam including the following: Automated exposure control was utilized; adjustment of the MA and/or KV according to patient size; and use of iterative reconstruction technique. FINDINGS: There is sulcal and ventricular prominence. The brainshows normal morphology and cárdenas-white matter differentiation, without intracranial hemorrhage, extra-axial fluid collection, mass effect or acute large vessel infarct. The ventricles are normal in size. The basal cisterns are patent. The skull and visible facial bones are intact. The paranasal sinuses, mastoid air cells and middle ear cavities are well-aerated. The soft tissues of the scalp are unremarkable. IMPRESSION: No acute intracranial abnormality. Labs Test 01/10/25 14:50 01/10/25 09:26 Range/Units Urine Color Light-yellow Yellow Urine Clarity Clear Clear Urine pH 6.0 5.0-9.0 Urine Specific [place] 1.026 1.001-1.035 Urine Protein Negative Negative Urine Ketones Negative Negative Urine Blood Negative Negative /uL Urine Nitrite Negative Negative Urine Bilirubin Negative Negative Urine Urobilinogen Normal Negative mg/dL Urine Leukocyte Esterase Negative Negative /uL Urine RBC 1 0 - 3 /hpf Urine Microscopic WBC 1 0-3 /HPF Urine Squamous Epithelial Cells Few <5 /hpf Urine Bacteria None seen None Seen /hpf Urine Mucus Few None Seen Urine Glucose Normal Normal mg/dL White Blood Count 5.0 4.4-10.8 10^3/uL Red Blood Count 4.34 L 4.5-5.90 10^6/uL Hemoglobin 13.6 13.5-17.5 g/dL Hematocrit 40.1 L 41.0-53.0 % Mean Corpuscular Volume 92.3 80.0-100.0 fL Mean Corpuscular Hemoglobin 31.3 28.0-32.0 pg Mean Corpuscular Hemoglobin Concent 33.8 32.0-36.0 g/dL Red Cell Distribution Width 14.4 H 11.8-14.3 % Platelet Count 279 140-450 10^3/uL Mean Platelet Volume 6.6 L 6.9-10.8 fL Neutrophils (%) (Auto) 73.0 37.0-80.0 % Lymphocytes (%) (Auto) 17.1 10.0-50.0 % Monocytes (%) (Auto) 8.8 0.0-12.0 % Eosinophils (%) (Auto) 0.6 0.0-7.0 % Basophils (%) (Auto) 0.5 0.0-2.0 % Neutrophils # (Auto) 3.7 1.6-8.6 10 ^3/uL Lymphocytes # (Auto) 0.9 0.4-5.4 10 ^3/uL Monocytes # (Auto) 0.4 0-1.3 10 ^3/uL Eosinophils # (Auto) 0 0-0.8 10 ^3/uL Basophils # (Auto) 0 0-0.2 10 ^3/uL Nucleated Red Blood Cells 0.1 % Sodium Level 140 136-145 mmol/L Potassium Level 3.9 3.5-5.1 mmol/L Chloride Level 104 98-107 mmol/L Carbon Dioxide Level 27 20-31 mmol/L Anion Gap 9 5-15 Blood Urea Nitrogen 15 9-23 mg/dL Creatinine 0.93 0.700-1.30 mg/dL Glomerular Filtration Rate Calc 106 >90 mL/min BUN/Creatinine Ratio 16.1 10.0-20.0 Serum Glucose 83 74-106 mg/dL Calcium Level 9.4 8.7-10.4 mg/dL Assessment/Plan Assessment/Plan Assessment Breakthrough seizure History of schizophrenia Noncompliant Plan Admit the patient to Med surge to the hospitalist Resume home medications Seizure precautions in place Continue treatment per orders. Plan discussed with: Patient My Orders Orders - JACKSON GODINEZ Procedure Category Date Status Time Lamotrigine Tablet PHA 01/10/25 In Process (Lamictal Tablet) 22:00 Lacosamide (Vimpat) PHA 01/10/25 In Process 22:00 Quetiapine Fumarate PHA 01/10/25 In Process Tablet (Seroquel Tab 22:00 Lorazepam 2mg/Ml Inj PHA 01/10/25 In Process (Ativan Inj) 19:00 Seizure Precautions ED NURSING 01/10/25 Transmitted Regular Diet DIET 01/11/25 Transmitted Breakfast Admit ADMIT 01/10/25 Transmitted 18:52 Temazepam (Restoril) PHA 01/10/25 In Process 19:00 Ondansetron Hcl PHA 01/10/25 In Process (Zofran) 19:00 Condition: Stable GINGER 01/10/25 In Process 18:52 Acetaminophen Tablet PHA 01/10/25 In Process (Tylenol Tablet) 19:00 Bedrest With Bathroom GINGER 01/10/25 In Process Privileg 18:52 Date of Service: Jan 10, 2025 Billing Provider: JACKSON GODINEZ Common Visit Codes: [id number] INP/OBS CARE (HIGH) JACKSON GODINEZ Jan 10, 2025 21:45
[2025-01-10] MEDS: TEMAZEPAM 15 MG CAP PO PRN (21:47)
[2025-01-11] VITALS (9 sets, daily range): BP systolic 125–140; BP diastolic 78–93; PULSE 79–87; RESP 16–18; TEMP 97.6–98.1; O2SAT 95–98
[2025-01-11] MEDS ORDERED: OME20T PO (11:19)
[2025-01-11] MEDS ORDERED: [UNRECOGNIZED DRUG - CODE] PO (11:23)
--- NOTE | 2025-01-11 12:51 | DVHPN2 ---
Reviewed: Care Plan, H&P, Labs, Medications, Previous Orders, Radiology Changes from previous H/P or p: No Changes Objective Vitals Vital Signs Date Time Temp Pulse Resp B/P (MAP) Pulse Ox O2 Delivery O2 Flow Rate FiO2 01/11/25 08:53 98.1 83 16 130/79 (96) 95 98.1 01/11/25 08:10 Room Air* 0 21 Intake/Output Intake and Output 01/11/25 07:00 Intake Total 1000 ml Output Total 600 ml Balance 400 ml Intake IV Total 1000 ml Output Urine Total 600 ml # Voids 2 # Bowel Movements 1 Medications Current Medications Medications Dose Ordered Sig/Miki Route Start Time Stop Time Status Last Admin Dose Admin Lamotrigine 150 mg Q12HR PO 01/10/25 22:00 01/11/25 10:11 150 MG Lacosamide 100 mg BID PO 01/10/25 22:00 01/11/25 10:10 100 MG Quetiapine Fumarate 300 mg HS PO 01/10/25 22:00 01/10/25 21:45 300 MG Lorazepam 1 mg Q5MINP PRN IV 01/10/25 19:00 Temazepam 15 mg QHSP PRN PO 01/10/25 19:00 01/10/25 21:47 15 MG Ondansetron HCl 4 mg Q4HP PRN IV 01/10/25 19:00 Acetaminophen 650 mg Q6HP PRN PO 01/10/25 19:00 Laboratory Results Laboratory Tests 01/10/25 09:26 Urinalysis Test 01/10/25 14:50 Urine Color Light-yellow (Yellow) Urine Clarity Clear (Clear) Urine pH 6.0 (5.0-9.0) Urine Specific [place] 1.026 (1.001-1.035) Urine Protein Negative (Negative) Urine Ketones Negative (Negative) Urine Blood Negative /uL (Negative) Urine Nitrite Negative (Negative) Urine Bilirubin Negative (Negative) Urine Urobilinogen Normal mg/dL (Negative) Urine Leukocyte Esterase Negative /uL (Negative) Urine RBC 1 /hpf (0 - 3) Urine Microscopic WBC 1 /HPF (0-3) Urine Squamous Epithelial Cells Few /hpf (<5) Urine Bacteria None seen /hpf (None Seen) Urine Mucus Few (None Seen) Urine Glucose Normal mg/dL (Normal) Labs and/or images reviewed: Labs reviewed by me, Image(s) reviewed by me Assessment/Plan Assessment/Plan Breakthrough seizures: Lamictal, vimpat consult for Neurology Dr. Edwards History of seizure Schizophrenia: Seroquel Noncompliance Per mother's request also placed non formulary medication cenobamate 200 mg po bid for the seizures Plan discussed with: Patient My Orders Orders - EMILY STARK MD Procedure Category Date Status Time * Neurology Consult CONS 01/11/25 Transmitted 12:32 Date of Service: Jan 11, 2025 Billing Provider: EMILY STARK MD Common Visit Codes: [id number] INP/OBS CARE(HIGH) EMILY STARK MD Jan 11, 2025 12:51
[2025-01-11] MEDS: CENOBAMATE 200 MG PO SCH (21:20)
--- NOTE | 2025-01-11 23:36 | DVHINCON2 ---
Date of service: Jan 11, [address] Schafer Reason for Consultation Seizure History of Present Illness is a 39 years old right-handed gentleman with a history of schizophrenia, seizure disorder, he was admitted to the [facility] on 01/10/25 with a chief complaint of seizure activity because he has run out his medication for two days. At that time, he is alert and oriented, but he is not a good historian, I saw him on 12/01/2024, 12/05/2024 for seizure He had two seizure activity yesterday in that he was shaking all over body, he only remember a little bit of the seizure (he does not remember the convulsion) He had one seizure witnessed on the floor on 01/11/2025, in that he was shaking in both upper extremities, with the head was bending over He has seizure disorder since age of 1 to 1 years old, in that he has spells of shaking all over body with loss of consciousness, sometimes with biting in the mouth, recently he has seizure 1-2 times monthly, mostly when he is asleep, and he remembers some of the seizure attacks He has a VNS stimulator He said his neurologist retired already He is on Vimpat 100 mg b.i.d., Xcopri 200 mg two tablets at bedtime, lamotrigine He was on Trileptal CBC, 01/10/2025: Unremarkable BMP, 01/10/2025: Unremarkable CT head, 07/22/2024: No acute intracranial abnormality CT head, 12/03/2024: No acute intracranial abnormality Past Medical History Schizophrenia, seizure Past Surgical History Appendectomy, VNS stimulator Family History: Asthma G8 BROTHER Diabetes mellitus G8 FATHER Malignant neoplasm of breast grandma Family History Diabetes, asthma, cancer Social History He has no history of smoking, alcohol or drug abuse Allergies: Coded Allergies: Diazepam (Verified Adverse Reaction, Intermediate, 01/10/25) Home Meds Reported Medications Cenobamate (Xcopri 150 & 200 mg) 1 Mimi Mimi, 1 MIMI PO BID for seizures, PACK 200mg BID 01/11/25 Omeprazole (Omeprazole) 20 Mg Cap, 20 MG PO DAILY, CAP 01/11/25 Lacosamide (Vimpat) 50 Mg Tab, 50 MG PO BID for 30 Days, #60 TAB 1 Refill 12/06/24 Lamotrigine (LAMOTRIGINE ER) 300 Mg Tab 11/30/24 Lacosamide (Lacosamide) 50 Mg Tab 11/30/24 Quetiapine Fumerate (QUETIAPINE FUMARATE) 400 Mg Tab 11/30/24 Trazodone Hcl (Trazodone Hcl) 100 Mg Tab, 100 MG PO HS, MG 03/01/19 Quetiapine Fumerate (Seroquel) 25 Mg Tab, 800 MG PO HS for 30 Days, MG 02/28/19 Lamotrigine (Lamictal) 25 Mg Tab, 50 MG PO TID, #60 TAB 1 Refill 02/28/19 Ondansetron (Zofran) 4 Mg Tab, 8 MG PO TIDPRN PRN for NAUSEA / VOMITING, MG 02/28/19 Multiple Vitamin (Multivitamins) Tab, 1 TAB PO DAILY, #90 TAB 3 Refills 02/28/19 Docusate Sodium (Docusate Sodium) 100 Mg Tab, 200 MG PO BIDP PRN for FOR CONSTIPATION, MG 02/28/19 Benztropine Mesylate (Benztropine Mesylate) 1 Mg Tab, 1 TAB PO DAILY, #60 TAB 02/28/19 Paliperidone (Invega) 3 Mg Tab, 1 TAB PO DAILY, #30 TAB 2 Refills 02/28/19 Current Medications Current Medications Medications (Trade) Dose Ordered Sig/Miki Route PRN Reason Start Time Stop Time Status Last Admin Patient Own Medication 200 mg BID PO 01/11/25 22:00 Review of Systems As above, the other systems are negative Vital Signs Vital Signs Date Time Temp Pulse Resp B/P (MAP) Pulse Ox O2 Delivery O2 Flow Rate FiO2 01/11/25 20:57 98.0 82 17 140/88 (105) 98 98.0 01/11/25 20:06 Room Air* 0 21 Physical Exam GENERAL EXAM: General: the patient is well developed and nourished. No acute distress. HEENT: Normocephalic, neck is supple, no carotid bruits. No mass. RESPIRATORY: Normal respiratory effort with symmetrical lung expansion. Lungs clear to auscultation. CARDIOVASCULAR: Regular rate and rhythm with no murmurs. S1, S2. ABDOMEN: Soft, nontender, normal bowel sound NEUROLOGICAL: MENTAL STATUS: Awake and alert. Oriented to person, place, time and general circumstances. Able to give personal history. SPEECH, LANGUAGE, HIGHER CORTICAL FUNCTION: no aphasia or dysathria. CRANIAL NERVES: #2: Intact visual acuña to confrontation. The optic discs were sharp. #3,4,6: Pupils are equal, round and reactive. EOMs full and conjugate. #5: Facial sensation intact in all three divisions bilaterally. Mandibular str ength intact. #7: Facial muscles symmetrical and strength intact. #8: Hearing grossly normal to voice. #9,10: Uvula and soft palate rise in the midline. Swallow and voice are normal. #11: Trapezius and sternomastoid strength intact bilaterally. #12: Tongue midline. No fasciculations or atrophy. SENSATION: Sensation to touch and pinprick is normal. MOTOR: Normal tone in the upper and lower extremity. Normal muscle bulk. No fasciculations. Mild tremor in the hands. Muscle strength of the major groups in the upper extremities is 5/5. Muscle strength of the major groups in the lower extremities is 5/5. REFLEXES: Deep tendon reflexes normal and symmetrical. No pathological reflexes. CEREBELLAR/COORDINATION: Finger to nose is normal bilaterally. GAIT/STATION: deferred Labs/Diagnostic Data Labs Test 01/10/25 14:50 01/10/25 09:26 Range/Units Urine Color Light-yellow Yellow Urine Clarity Clear Clear Urine pH 6.0 5.0-9.0 Urine Specific [place] 1.026 1.001-1.035 Urine Protein Negative Negative Urine Ketones Negative Negative Urine Blood Negative Negative /uL Urine Nitrite Negative Negative Urine Bilirubin Negative Negative Urine Urobilinogen Normal Negative mg/dL Urine Leukocyte Esterase Negative Negative /uL Urine RBC 1 0 - 3 /hpf Urine Microscopic WBC 1 0-3 /HPF Urine Squamous Epithelial Cells Few <5 /hpf Urine Bacteria None seen None Seen /hpf Urine Mucus Few None Seen Urine Glucose Normal Normal mg/dL White Blood Count 5.0 4.4-10.8 10^3/uL Red Blood Count 4.34 L 4.5-5.90 10^6/uL Hemoglobin 13.6 13.5-17.5 g/dL Hematocrit 40.1 L 41.0-53.0 % Mean Corpuscular Volume 92.3 80.0-100.0 fL Mean Corpuscular Hemoglobin 31.3 28.0-32.0 pg Mean Corpuscular Hemoglobin Concent 33.8 32.0-36.0 g/dL Red Cell Distribution Width 14.4 H 11.8-14.3 % Platelet Count 279 140-450 10^3/uL Mean Platelet Volume 6.6 L 6.9-10.8 fL Neutrophils (%) (Auto) 73.0 37.0-80.0 % Lymphocytes (%) (Auto) 17.1 10.0-50.0 % Monocytes (%) (Auto) 8.8 0.0-12.0 % Eosinophils (%) (Auto) 0.6 0.0-7.0 % Basophils (%) (Auto) 0.5 0.0-2.0 % Neutrophils # (Auto) 3.7 1.6-8.6 10 ^3/uL Lymphocytes # (Auto) 0.9 0.4-5.4 10 ^3/uL Monocytes # (Auto) 0.4 0-1.3 10 ^3/uL Eosinophils # (Auto) 0 0-0.8 10 ^3/uL Basophils # (Auto) 0 0-0.2 10 ^3/uL Nucleated Red Blood Cells 0.1 % Sodium Level 140 136-145 mmol/L Potassium Level 3.9 3.5-5.1 mmol/L Chloride Level 104 98-107 mmol/L Carbon Dioxide Level 27 20-31 mmol/L Anion Gap 9 5-15 Blood Urea Nitrogen 15 9-23 mg/dL Creatinine 0.93 0.700-1.30 mg/dL Glomerular Filtration Rate Calc 106 >90 mL/min BUN/Creatinine Ratio 16.1 10.0-20.0 Serum Glucose 83 74-106 mg/dL Calcium Level 9.4 8.7-10.4 mg/dL Assessment Grand mal seizure, 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 Xcopri 200 mg Bid Lamotrigine 150 mg Bid Ativan for seizure breakthrough Follow with his doctors on discharge Prognosis: Poor This medical document was created using an electronic medical record system with [employer] system. Although this document has been carefully reviewed, there may still be some phonetic and typographical errors. These areas are purely typographical due to imperfections of the software programs, and do not reflect any compromise in the patient's medical care. Plan discussed with: Other RODOLFO AVERY MD Jan 11, 2025 23:35
[2025-01-12 00:52] VITALS: BP 133/88; PULSE 82; RESP 17; TEMP 97.9; O2SAT 97
[2025-01-12 04:50] VITALS: BP 135/90; PULSE 72; RESP 17; TEMP 97.9; O2SAT 98
[2025-01-12 08:00] VITALS: PULSE 76; RESP 18; O2SAT 96
[2025-01-12 09:00] VITALS: BP 124/72; PULSE 76; RESP 18; TEMP 97.8; O2SAT 96
[2025-01-12] MEDS ORDERED: LACO100T PO (11:15)
[2025-01-12] MEDS ORDERED: LAM100T PO (11:16)
--- NOTE | 2025-01-12 11:21 | DVHPN2 ---
Reviewed: Care Plan, H&P, Labs, Medications, Previous Orders, Radiology Changes from previous H/P or p: No Changes Objective Vitals Vital Signs Date Time Temp Pulse Resp B/P (MAP) Pulse Ox O2 Delivery O2 Flow Rate FiO2 01/12/25 09:00 97.8 76 18 124/72 (89) 96 97.8 01/11/25 20:06 Room Air* 0 21 Intake/Output Intake and Output 01/12/25 07:00 Intake Total 1900 ml Balance 1900 ml Intake Oral 1900 ml # Voids 7 Medications Current Medications Medications Dose Ordered Sig/Miki Route Start Time Stop Time Status Last Admin Dose Admin Lamotrigine 150 mg Q12HR PO 01/10/25 22:00 01/12/25 10:12 150 MG Lacosamide 100 mg BID PO 01/10/25 22:00 01/12/25 10:11 100 MG Quetiapine Fumarate 300 mg HS PO 01/10/25 22:00 01/11/25 21:22 300 MG Lorazepam 1 mg Q5MINP PRN IV 01/10/25 19:00 Temazepam 15 mg QHSP PRN PO 01/10/25 19:00 01/10/25 21:47 15 MG Ondansetron HCl 4 mg Q4HP PRN IV 01/10/25 19:00 Acetaminophen 650 mg Q6HP PRN PO 01/10/25 19:00 Patient Own Medication 200 mg BID PO 01/11/25 22:00 Laboratory Results Laboratory Tests 01/10/25 09:26 Urinalysis Test 01/10/25 14:50 Urine Color Light-yellow (Yellow) Urine Clarity Clear (Clear) Urine pH 6.0 (5.0-9.0) Urine Specific [place] 1.026 (1.001-1.035) Urine Protein Negative (Negative) Urine Ketones Negative (Negative) Urine Blood Negative /uL (Negative) Urine Nitrite Negative (Negative) Urine Bilirubin Negative (Negative) Urine Urobilinogen Normal mg/dL (Negative) Urine Leukocyte Esterase Negative /uL (Negative) Urine RBC 1 /hpf (0 - 3) Urine Microscopic WBC 1 /HPF (0-3) Urine Squamous Epithelial Cells Few /hpf (<5) Urine Bacteria None seen /hpf (None Seen) Urine Mucus Few (None Seen) Urine Glucose Normal mg/dL (Normal) Labs and/or images reviewed: Labs reviewed by , Image(s) reviewed by me Assessment/Plan Assessment/Plan Breakthrough seizures: Lamictal, vimpat consult for Neurology Dr. Edwards appreciated, no further neurology workup History of seizure Schizophrenia: Seroquel Noncompliance Per mother's request also placed non formulary medication cenobamate 200 mg po bid for the seizures Plan discussed with: Patient My Orders Orders - EMILY STARK MD Procedure Category Date Status Time * Neurology Consult CONS 01/11/25 Transmitted 12:32 (Nf) Cenobamate PHA 01/11/25 In Process 22:00 Date of Service: Jan 12, 2025 Billing Provider: EMILY STARK MD Common Visit Codes: [id number] INP/OBS CARE(HIGH) EMILY STARK MD Jan 12, 2025 11:21
--- NOTE | 2025-01-12 11:25 | DVHDS2 ---
Discharge Summary Date of Admission Jan 10, 2025 at 18:52 Date of Discharge: Jan 12, 2025 Admitting Diagnosis Breakthrough seizures Wounds: None Labs/Diagnostic Data: Laboratory Results Test 01/10/25 14:50 01/10/25 09:26 Urine Color Light-yellow (Yellow) Urine Clarity Clear (Clear) Urine pH 6.0 (5.0-9.0) Urine Specific [place] 1.026 (1.001-1.035) Urine Protein Negative (Negative) Urine Ketones Negative (Negative) Urine Blood Negative /uL (Negative) Urine Nitrite Negative (Negative) Urine Bilirubin Negative (Negative) Urine Urobilinogen Normal mg/dL (Negative) Urine Leukocyte Esterase Negative /uL (Negative) Urine RBC 1 /hpf (0 - 3) Urine Microscopic WBC 1 /HPF (0-3) Urine Squamous Epithelial Cells Few /hpf (<5) Urine Bacteria None seen /hpf (None Seen) Urine Mucus Few (None Seen) Urine Glucose Normal mg/dL (Normal) White Blood Count 5.0 10^3/uL (4.4-10.8) Red Blood Count 4.34 10^6/uL (4.5-5.90) Hemoglobin 13.6 g/dL (13.5-17.5) Hematocrit 40.1 % (41.0-53.0) Mean Corpuscular Volume 92.3 fL (80.0-100.0) Mean Corpuscular Hemoglobin 31.3 pg (28.0-32.0) Mean Corpuscular Hemoglobin Concent 33.8 g/dL (32.0-36.0) Red Cell Distribution Width 14.4 % (11.8-14.3) Platelet Count 279 10^3/uL (140-450) Mean Platelet Volume 6.6 fL (6.9-10.8) Neutrophils (%) (Auto) 73.0 % (37.0-80.0) Lymphocytes (%) (Auto) 17.1 % (10.0-50.0) Monocytes (%) (Auto) 8.8 % (0.0-12.0) Eosinophils (%) (Auto) 0.6 % (0.0-7.0) Basophils (%) (Auto) 0.5 % (0.0-2.0) Neutrophils # (Auto) 3.7 10 ^3/uL (1.6-8.6) Lymphocytes # (Auto) 0.9 10 ^3/uL (0.4-5.4) Monocytes # (Auto) 0.4 10 ^3/uL (0-1.3) Eosinophils # (Auto) 0 10 ^3/uL (0-0.8) Basophils # (Auto) 0 10 ^3/uL (0-0.2) Nucleated Red Blood Cells 0.1 % Sodium Level 140 mmol/L (136-145) Potassium Level 3.9 mmol/L (3.5-5.1) Chloride Level 104 mmol/L (98-107) Carbon Dioxide Level 27 mmol/L (20-31) Anion Gap 9 (5-15) Blood Urea Nitrogen 15 mg/dL (9-23) Creatinine 0.93 mg/dL (0.700-1.30) Glomerular Filtration Rate Calc 106 mL/min (>90) BUN/Creatinine Ratio 16.1 (10.0-20.0) Serum Glucose 83 mg/dL (74-106) Calcium Level 9.4 mg/dL (8.7-10.4) Other Laboratory Tests 01/10/25 09:26 Brief Hx & Hospital Course: 1-year-old male with a history of seizures schizophrenia noncompliant brought in for breakthrough seizures admitted. Restarted back on home medications Lamictal Vimpat and cenobamate. Patient did not have any seizures after admission seen by Neurology Dr. Edwards no further neurological workup discharged home to resume home medications. Handwritten prescription given for all the three seizure medications Consults/Reason for consult Neurology Dr. Edwards Operations or Procedures None Condition at Discharge: Fair Final Diagnosis/Problems List Breakthrough seizures: Lamictal, vimpat consult for Neurology Dr. Edwards appreciated, no further neurology workup History of seizure Schizophrenia: Seroquel Noncompliance Per mother's request also placed non formulary medication cenobamate 200 mg po bid for the seizures Discharge Disposition: Home Discharge Instruct/Medications Diet: Regular Activity: Light activity Follow Up/Referral: Follow up with your neurologist Resume all previous home medications Medications: Handwritten Prescription given for Vimpat , xcoro. Lamictal 39 (Time taken for discharge summary 39 minutes) Discharge Statement: "Patient was advised to return to the ER or call 911 if any headaches, dizziness, shortness of breath, chest pain, abdominal pain, bleeding, fevers, or worsening of medical condition. Patient was counseled about treatment plan, medications, possible side effects, patientverbalized understanding. All questions were answered to the best of my ability. This discharge took greater then 30 minutes in planning, reviewing documentation, counseling the patient, and discussing with other team members." ASSESSMENT ASSESSMENT Hospital Course improved Assessment Breakthrough seizures: Lamictal, vimpat consult for Neurology Dr. Edwards appreciated, no further neurology workup History of seizure Schizophrenia: Seroquel Noncompliance Per mother's request also placed non formulary medication cenobamate 200 mg po bid for the seizures Date of Service: Jan 12, 2025 Billing Provider: EMILY STARK MD Common Visit Codes: [id number]/OBS DISCH DAY >30min EMILY STARK MD Jan 12, 2025 11:25
[2025-01-12 13:20] VITALS: TEMP 36.6
== END 2025-01-12 14:15 | disposition home or self-care (01) | DRG 53 ==
LOC: EDBD 08:38 → ER 08:38 → OVERFLOW 18:52 → WEST WING 23:52
PROVIDERS: ADMIT Family Medicine; ATTEND Family Medicine
DX: G40.409 Other generalized epilepsy and epileptic syndromes, not intractable, without status epilepticus (principal); F20.9 Schizophrenia, unspecified; Z79.899 Other long term (current) drug therapy; Z91.199 Patient's noncompliance with other medical treatment and regimen due to unspecified reason; Z82.5 Family history of asthma and other chronic lower respiratory diseases; Z83.3 Family history of diabetes mellitus; Z80.3 Family history of malignant neoplasm of breast
CPT/HCPCS: 36415; 80048; 81001; 85025; 93005; 96361; 96374; 99291; G0378